=== PATIENT | female | born 1945 | race Caucasian/White ===

== ENCOUNTER 2016-07-08 00:40 | Inpatient (IN) | payer MEDICARE, MEDICAID ==
[~2016-07-08] VITALS: Ht 167.6 cm; Wt 99.7 kg
--- NOTE | ~2016-07-08 | DS ---
PATIENT'S NAME: REJI GILL [facility] AGE: 70 Y [address] ROOM: [address] [place], [place] [address] LOCATION: G3N ADMIT DATE: 07/09/2016 Discharge Summary DISCHARGE DATE: 07/11/2016 FAMILY PHYSICIAN: Suleman Junior MD ATTENDING PHYSICIAN: Karena Morrison FINAL DIAGNOSES: 1. Left lower extremity pain secondary to right knee pain. 2. End-stage renal disease. 3. Fistula dysfunction. 4. Essential hypertension. 5. Chronic liver disease. 6. Paroxysmal atrial fibrillation. Please see the history and physical dictated by Dr. Morrison for details of admission. LABORATORY DATA: On admit, sodium 137, discharge 136. Potassium on admit was 3.7, 5.4 on discharge. BUN on admission was 42, discharge 35. Creatinine on admission 6, discharge 4.8. Liver enzymes were normal. White blood cell count on admission was 7.6, hemoglobin 9.6, hematocrit 29.7, and platelet count 120. X-RAY DATA: MRI of her lumbar spine showed old compression deformity at T12, L1, and L4 with previous vertebroplasties and significant arthritic changes. HOSPITAL COURSE: The patient was admitted to the hospital after presenting to the emergency room with complaints of pain in her right leg and inability to bear weight. She was having to hold on to objects at home to walk and was using a walker here because she could not stand to bear weight. Because of her longstanding renal disease, Nephrology was consulted and she did receive dialysis. Dr. Waller did see her and an MRI was obtained, which really did not give an etiology for pain. Her right knee did swell more after she was admitted. Dr. Carter was asked to evaluate the patient, he did aspirate. He did inject the knee with steroid. After that, she notes that the pain was improved and she could eventually bear weight. Her left arm did swell here. There was a concern about how well her fistula was functioning. She was seen by Dr. Campoverde. A fistulogram was done and she did require a balloon angioplasty for stenosis. On the morning of the , it was felt that she was stable for discharge, she was ambulating. She did have access so that she could continue to receive dialysis. DISCHARGE INSTRUCTIONS: Diet, she is to follow diabetic diet. Follow up with Dr. Campoverde in 1 to 2 weeks, Dr. Carter in 2 weeks, and to continue her outpatient dialysis. MEDICATIONS: PATIENT'S NAME: REJI GILL [facility] AGE: 70 Y [address] ROOM: [id number] [place], [place] [address] LOCATION: [facility] ADMIT DATE: 07/09/2016 Discharge Summary DISCHARGE DATE: 07/11/2016 FAMILY PHYSICIAN: Suleman Junior MD ATTENDING PHYSICIAN: Karena Morrison 1. Allopurinol 100 mg daily. 2. Aspirin 325 mg daily. 3. PhosLo 3335 three times daily with meals and 2001 mg with snacks. 4. Midodrine 10 mg 3 days daily on the morning prior to dialysis. 5. Prilosec 20 mg daily. 6. Tylenol 650 mg every 8 hours as needed. 7. Albuterol inhaled every 6 hours as needed. 8. Mylanta 1 dose as needed for reflux. 9. Compazine 10 mg every 6 hours as needed for nausea. OVERALL PROGNOSIS AT DISCHARGE: Pain was controlled with Tylenol. The patient was stable for discharge. MD KARLA TRIPATHI/alix /[id number] d: 07/11/16 1745 t: 07/24/16 1043, DISCHARGE SUMMARY
--- NOTE | ~2016-07-08 | CON ---
PATIENT'S NAME: REJI GILL [facility] AGE: 70 Y [address] ROOM: [address] [address] LOCATION: [facility] ADMIT DATE: 07/08/2016 Consultation DISCHARGE DATE: FAMILY PHYSICIAN: Buddy Junior ATTENDING PHYSICIAN: LISSETTE DEL CID DATE OF CONSULTATION: 07/09/2016 REFERRING PHYSICIAN: SEAN ALLEN REASON FOR CONSULT: Swollen left upper extremity. HISTORY OF PRESENT ILLNESS: This is a 70-year-old female, admitted to [facility] after presenting to the emergency room with right lower extremity swelling and pain. The Doppler in the ER was negative for DVT. Dr. Carter is currently seeing the patient regarding right lower extremity problems. The patient has a known end-stage renal disease history, requiring hemodialysis, and she received dialysis last on July 08, 2016, as an inpatient. We are consulted regarding left upper extremity swelling since dialysis yesterday. The patient denies any problems with dialysis running, but does report some bleeding recently after dialysis. The patient has a left upper extremity AV fistula brachiocephalic that was placed in 2010 and a fistulogram that was completed in 2013.The patient reports that she has had 3 stents placed to her fistula. The patient also has a history of a failed right radiocephalic AV fistula. The patient also with history of paroxysmal atrial fibrillation, hypertension, coronary artery disease, COPD, dyslipidemia, and chronic anemia. She has no history of DVT. The patient denies any shortness of breath, chest pain, nausea, vomiting, or diarrhea. Denies abdominal pain. Denies any claudication symptoms. She denies being diabetic. The patient has a short smoking history of 1 year, which she stopped at age 22. She is positive for right lower extremity swelling and pain as well as left upper extremity swelling. The patient receives dialysis on Friday, Wednesdays, and Fridays. Nephrology is managing dialysis. PAST MEDICAL HISTORY: 1. End-stage renal disease. 2. Membranoproliferative glomerulonephritis. 3. Coronary artery disease. 4. Hypothyroidism. 5. Hypertension. 6. COPD. 7. Hyperlipidemia. 8. Anemia of chronic kidney disease. 9. Paroxysmal atrial fibrillation. 10. Lymphoma. 11. Liver disease and cirrhosis. PATIENT'S NAME: REJI GILL [facility] AGE: 70 Y [address] ROOM: [place] [address] LOCATION: [facility] ADMIT DATE: 07/08/2016 Consultation DISCHARGE DATE: FAMILY PHYSICIAN: Buddy Junior ATTENDING PHYSICIAN: LISSETTE DEL CID PAST SURGICAL HISTORY: 1. Cholecystectomy. 2. Appendectomy. 3. Liver biopsy. 4. Ectopic . 5. Hysterectomy. 6. Left tibia ORIF. 7. Kidney biopsy. 8. Lymph node biopsy. 9. Right arm radiocephalic fistula. 10. Left arm brachiocephalic fistula. 11. L4 vertebroplasty. 12. Fistulogram to left arm with stents x3. FAMILY HISTORY: Mother with coronary artery disease. Father with lung cancer. Sister and brother both with diabetes mellitus. SOCIAL HISTORY: The patient reports 1 year tobacco use history at age 22. Denies any alcohol or illicit drug use. CURRENT MEDICATIONS: See medication records. ALLERGIES: NIFEDIPINE, FELODIPINE, AND CORTICOSTEROIDS. REVIEW OF SYSTEMS: A 10-point review of systems completed, positives addressed in the history of presenting illness. PHYSICAL EXAMINATION: VITAL SIGNS: Temperature 97.7, heart rate 72, respiratory rate 16, blood pressure 110/54, and oxygen saturations 94%. GENERAL: The patient is in no acute distress, alert and oriented x3, and pleasant. SKIN: Warm, pink, and dry. Venous staining to bilateral lower extremities. No rashes or ulcerations. HEENT: Head: Normocephalic and atraumatic. Ears without drainage. Eyes: Sclerae white. Conjunctivae pink. Extraocular movements intact. PERRLA. Nose without drainage. Throat: Oral mucosa pink and moist. No exudate or erythema. NECK: Without adenopathy. No evidence of JVD. No carotid bruit. Trachea PATIENT'S NAME: REJI GILL [facility] AGE: 70 Y [address] ROOM: [place] [address] LOCATION: [facility] ADMIT DATE: 07/08/2016 Consultation DISCHARGE DATE: FAMILY PHYSICIAN: Buddy Junior ATTENDING PHYSICIAN: LISSETTE DEL CID midline. RESPIRATORY: Diminished lung sounds, but clear to auscultation bilaterally. Even and nonlabored. CARDIOVASCULAR: Regular rate and rhythm. No murmur or extra sounds. S1 and S2. GASTROINTESTINAL: Bowel sounds active x4. Soft and nontender. EXTREMITIES: Bilateral lower extremity edema worse on the right 2+, on the left 1+, left upper extremity edema 2+. Left arm AV graft is pulsatile with bruit. Radial and dorsalis pedis 2+. No cyanosis. Active range of motion throughout. NEUROLOGIC: No focal deficits. Strength equal bilaterally. DIAGNOSTICS/LABS: Chemistry: Sodium 138, potassium 3.6, chloride 98, CO2 of 29, BUN 44, creatinine 6.0, and glucose 91. Hematology: White blood cell count 5.7, hemoglobin 9.2, hematocrit 28.2, and platelets 109. IMPRESSION AND PLAN: End-stage renal disease, on hemodialysis; recent left upper extremity swelling and exam findings are suggestive of outflow blockage or stenosis within her arteriovenous fistula. We will obtain fistula duplex with flow volume today. We will plan for fistulogram in the morning of 07/10/2016. The patient is to be n.p.o. at midnight. Dr. Campoverde has discussed risks and benefits with the patient and she verbalizes, willing to move forward with the procedure. Thank you for the consultation and for allowing us to participate in the care of this patient. KELLEE MIX APRN FOR RALPH CAMPOVERDE MD TO/modl /[id number] d: 07/09/161929 t: 07/12/16 1403, CONSULTATION REPORT
--- NOTE | ~2016-07-08 | ER ---
PATIENT'S NAME: JOPPA [facility] AGE: 70 Y [address] ROOM: [address] [address] LOCATION: [facility] ADMIT DATE: 07/08/2016 ER/Outpatient Report DISCHARGE DATE: FAMILY PHYSICIAN: Buddy Junior ATTENDING PHYSICIAN: LISSETTE DEL CID Time of Arrival: 0040 hours. Time of Evaluation: 0040 hours. CHIEF COMPLAINT: Right leg pain. HISTORY OF PRESENT ILLNESS: The patient is a 70-year-old female who presents to the emergency department today with a chief complaint of right leg pain. She reports it started last week. She saw her primary care doctor, Dr. Parra, on as she underwent an ultrasound, which was negative for DVT. It is a burning-type pain, currently 10/10 in severity. It is worse with movement. The patient denies any history of similar episodes in the past. Denies any trauma or fall. MEDICATIONS: Please see list. ALLERGIES: CORTICOSTEROIDS, GLUCOCORTICOIDS, NIFEDIPINE, FELODIPINE. PAST MEDICAL HISTORY: End-stage renal disease, on hemodialysis; paroxysmal atrial fibrillation; chronic hepatitis; congestive heart failure; coronary artery disease; COPD; hypertension; hypothyroid; dyslipidemia; anemia of chronic disease; and paroxysmal atrial fibrillation. PAST SURGICAL HISTORY: Left arm brachiocephalic AV graft, right arm AV graft, fistulogram, angioplasty, left arm AV graft, liver biopsy, left knee, appendectomy, cholecystectomy, and hysterectomy. SOCIAL HISTORY: The patient denies any tobacco, alcohol, or illicit drug use. PRIMARY CARE DOCTOR: Swetha Parra MD. ROS: All systems are reviewed by myself and are negative with the exception of those discussed in HPI and past medical history. PATIENT'S NAME: JOPPA [facility] AGE: 70 Y [address] ROOM: [address] [address] LOCATION: [facility] ADMIT DATE: 07/08/2016 ER/Outpatient Report DISCHARGE DATE: FAMILY PHYSICIAN: Buddy Junior ATTENDING PHYSICIAN: LISSETTE DEL CID PHYSICAL EXAMINATION: VITAL SIGNS: Weight 100.9 kg, blood pressure 165/70, pulse 87, respiratory rate 18, temperature 96.9, oxygen saturation 97% on room air. GENERAL: The patient is a 70-year-old female, who appears stated age, in acute distress secondary to pain whenever she moves her legs. She is obese. HEENT: Normocephalic, atraumatic. Pupils are equal, round, and reactive to light. NECK: Supple. There is no nuchal rigidity. CARDIOVASCULAR: Regular rate and rhythm. No murmurs, rubs, or gallops. LUNGS: Clear to auscultation bilaterally. No wheezes, rales, or rhonchi. ABDOMEN: Soft, nontender, and nondistended. No rebound, rigidity, or guarding. MUSCULOSKELETAL: The patient does have 1+ pretibial edema in bilateral extremities. She has significant tenderness to palpation with any range of motion of the right leg. She has tenderness to palpation along the right upper thigh, right knee, and then into the right leg. She does have 2/4 pulses, which are equal DP and PT in the lower extremities. SKIN: Warm and dry. There are no rashes or lesions there. LABORATORY DATA AND X-RAYS: Obtained. X-ray of the right hip and pelvis are negative as interpreted by myself. X-ray of the right leg is negative as interpreted by myself. Ultrasound of bilateral lower extremities shows no evidence of DVT or PE. CBC is normal except for a hemoglobin 9.6, hematocrit 29.7, platelets are 120. CMP is normal except for BUN 42, creatinine of 6.0, calcium 7.6. LFTs are normal. D-dimer is normal. IMPRESSION: 1. Intractable right lower extremity pain, unclear etiology. 2. End-stage renal disease, on hemodialysis. 3. Initial visit. EMERGENCY DEPARTMENT COURSE: The patient was brought back to the examination room. Seen and evaluated by myself. IV is established. Laboratory analysis and imaging are obtained as described above. The patient is given multiple doses of fentanyl IV as well as Tylenol p.o., gabapentin p.o., and Dilaudid IV. The patient continues to have pain at this time. I am unclear as to the exact etiology. This patient does have normal workup at this time. The patient does live alone at [facility]. She is unable to ambulate, unable to take care of herself at this time. I do feel she will require further evaluation and treatment management including a possible consideration for PT/OT. I have discussed the case with Dr. Del Cid. He has seen and evaluated the patient here in the emergency department. He does agree to accept the patient for further evaluation PATIENT'S NAME: REJI GILL [facility] AGE: 70 Y [address] ROOM: [address] [place] [address] LOCATION: [facility] ADMIT DATE: 07/08/2016 ER/Outpatient Report DISCHARGE DATE: FAMILY PHYSICIAN: Buddy Junior ATTENDING PHYSICIAN: LISSTETE DEL CID treatment and management. DISPOSITION/FOLLOW-UP: The patient is admitted under the care of Dr. Del Cid in stable condition. DO LORENE RETANA/modl /[id number] d: 07/08/16819 t: 07/09/16 0055, OUTPATIENT REPORT
--- NOTE | ~2016-07-08 | CON ---
PATIENT'S NAME: TIFFANY IGLL [facility] AGE: 70 Y [address] ROOM: [place] [address] LOCATION: [facility] ADMIT DATE: 07/09/2016 Consultation DISCHARGE DATE: FAMILY PHYSICIAN: Buddy Junior ATTENDING PHYSICIAN: LISSETTE DEL CID DATE OF CONSULTATION: 07/08/2016 REFERRING PHYSICIAN: SEAN ALLEN PATIENT IDENTIFICATION: Tiffany Gill is a 70-year-old female. PRESENTING COMPLAINTS: Right leg pain. HISTORY OF PRESENT ILLNESS: The patient was admitted by the Hospitalist Service with increased pain in the right leg. The patient had a prior history of vertebral compression fracture with vertebroplasty. I was consulted to see the patient for the possibility that the leg pain was in fact as a result of spine problem. The patient complained of pain around her right knee as her chief complaint. PAST MEDICAL HISTORY: Significant for end-stage renal disease, she is on dialysis. She also has swollen left upper extremity where she has a fistula. Other medical problems include coronary artery disease, hypothyroidism, COPD, hypertension, cardiac arrhythmia, lymphoma, liver disease with cirrhosis. The patient has had prior appendectomy, cholecystectomy, hysterectomy, kidney biopsy, and the vertebroplasty mentioned earlier. ALLERGIES: NIFEDIPINE, FELODIPINE, AND CORTICOSTEROIDS. CURRENT MEDICATIONS: Please see chart. SOCIAL HISTORY: The patient is a nonsmoker. REVIEW OF SYSTEMS: A 10-point review of systems was carried out. The only abnormal findings are as documented in the history of present illness. PHYSICAL EXAMINATION: GENERAL: The patient is a middle-aged female who was alert and cooperative through the examination. VITAL SIGNS: Stable. Per chart. PATIENT'S NAME: TIFFANY GILL [facility] AGE: 70 Y [address] ROOM: [place] [address] LOCATION: [facility] ADMIT DATE: 07/09/2016 Consultation DISCHARGE DATE: FAMILY PHYSICIAN: Buddy Junior ATTENDING PHYSICIAN: LISSETTE DEL CID NEUROLOGIC: Speech is intact. Cranial nerves, no deficits seen. Motor examination; the patient is able to move her left leg fairly well, the right one is very tender to move. She is particularly tender around the knee area. EXTREMITIES: The patient's right knee is swollen and tender. Left arm is also swollen where she has a fistula. HEENT: Her head is atraumatic. Eyes and ears; no evidence of trauma. SKIN: No skin rashes or skin masses. RESPIRATORY: The patient is not short of breath at bedside. REVIEW OF IMAGING STUDIES: The patient has had lumbar MRI done. There is evidence of degenerative change in some of her disks as well as the previous L4 compression fracture where she had vertebroplasty. There is no significant spinal stenosis. IMPRESSION: A 70-year-old female with right leg pain. Examination shows possibly inflamed right knee. The patient is unable to put weight on the right leg as a result of the knee pain. MEDICAL DECISION MAKING: I have consulted Dr. Carter, orthopedic surgeon, to evaluate the patient's knee. There is no indication for neurosurgical intervention regarding her back at this time. I will follow the patient along while she is in the hospital and see how she does. MD ABIMBOLA ALEMAN/alix /[id number] CC: Suleman Junior MD d: 07/11/16 0007 t: 07/12/16 1651, CONSULTATION REPORT
--- NOTE | ~2016-07-08 | OR ---
PATIENT'S NAME: REJI GILL [facility] AGE: 70 Y [address] ROOM: [address] [address] LOCATION: [facility] ADMIT DATE: 07/10/2016 OR/Procedure Report DISCHARGE DATE: FAMILY PHYSICIAN: Buddy Junior ATTENDING PHYSICIAN: LISSETTE DEL CID SURGEON: Sixto Campoverde MD SPRAY PAINTER: DATE OF PROCEDURE: 07/10/2016 PREOPERATIVE DIAGNOSIS: Nonfunctioning arteriovenous fistula. POSTOPERATIVE DIAGNOSIS: Central vein occlusion. FLIGHT SURVEYOR: El. ANESTHESIA: MAC local. ESTIMATED BLOOD LOSS: 50 mL. OPERATIVE FINDINGS: Central vein stent, which was completely occluded, recanalized at the end of the case. DESCRIPTION OF PROCEDURE: The patient was brought to the wharf labourer, placed supine on the wharf labourer table, prepped and draped in a sterile manner. Preoperative time-out was performed. We gained access using ultrasound guidance, using a micropuncture needle, followed by a micropuncture wire, followed by a micropuncture sheath. We then infiltrated the skin with 1% lidocaine for pain relief. We got access and exchange over a J-wire for 4- Setswana sheath, which we would ultimately exchange for a 5-Setswana sheath later on the case. We performed a series of fistulogram, which showed that the fistula itself was patent, but there was a central venous stent right at the location of the collarbone, which was occluded and likely the cause of her swelling in her arm. We used a 0.035 Glidewire as well as a TrailBlazer catheter to cross an open lesion. We then exchanged using the TrailBlazer for 0.018 wire. We then gave a total of 4000 units of heparin, which was reversed with protamine at the end of the case. We then balloon angioplastied the stent with an 8 x 40 [employer] balloon with the relief of the occlusion and then flow through into the stent down to the heart. We removed the sheath. A single 4-0 nylon was placed for hemostasis. The patient tolerated the procedure well, was transferred to recovery room, and then to the dialysis center. SIXTO CAMPOVERDE MD PATIENT'S NAME: REJI GILL [facility] AGE: 70 Y [address] ROOM: [address] [address] LOCATION: [facility] ADMIT DATE: 07/10/2016 OR/Procedure Report DISCHARGE DATE: FAMILY PHYSICIAN: Buddy Junior ATTENDING PHYSICIAN: LISSETTE DEL CID/alix /[id number] d: 07/10/16 1652 t: 07/12/16 1406, OPERATIVE SUMMARY
--- NOTE | ~2016-07-08 | ENPV ---
Vascular Lower Extremities DVT Study Procedure Demographics Patient Name REJI GILL Date of Study 07/08/2016 Patient Number [id number] Gender Female Date of 1945 Age 70 Visit Number [id number] Height Accession Number [id number] Weight Room Number G3306 BSA BMI Referring Vernon Escobedo MD Interpreting Gilles Henson MD Physician Melissa Pickett MD Physician Physician Ordering Physician Melissa Pickett MD Clinical Education Assistant Water Technician Ines Cobos T, [facility] Conclusions Summary Normal venous duplex examination of the legs bilaterally with normal venous Doppler signals noted throughout. No evidence of thrombophlebitis is noted bilaterally in the deep and superficial veins of the legs. Small calf thrombi cannot be excluded. Procedure Type of Study: Veins:Lower Extremities DVT Study, Venous Duplex Lower Extremity Bilateral. Indications for Study:Pain and Swelling. Appropriate Use Criteria:7 Patient Status:STAT. Study Location:ER. Technical Quality:Adequate visualization. - Preliminary reported to:Dr Torres at 0135. Velocities are measured in cm/s ; Diameters are measured in cm Right Lower Extremities DVT Study Measurements Right 2D and Doppler Measurements + + + + +------+------+ + !Location !Visualized!Compressibility!Thrombosis!Signal!Reflux!Reflux ! ! ! ! ! ! ! !(sec) ! + + + + +------+------+ + !GSV Thigh !Yes !Yes !None !Phasic! ! ! + + + + +------+------+ + !Common !Yes !Yes !None !Phasic! ! ! !Femoral ! ! ! ! ! ! ! + + + + +------+------+ + !Prox !Yes !Yes !None !Phasic! ! ! !Femoral ! ! ! ! ! ! ! + + + + +------+------+ + !Mid Femoral!Yes !Yes !None !Phasic! ! ! + + + + +------+------+ + !Dist !Yes !Yes !None !Phasic! ! ! !Femoral ! ! ! ! ! ! ! + + + + +------+------+ + !Popliteal !Yes !Yes !None !Phasic! ! ! + + + + +------+------+ + !PTV !Yes !Yes !None !Phasic! ! ! + + + + +------+------+ + !Peroneal !Yes !Yes !None !Phasic! ! ! + + + + +------+------+ + Left Lower Extremities DVT Study Measurements Left 2D and Doppler Measurements + + + + +------+------+ + !Location !Visualized!Compressibility!Thrombosis!Signal!Reflux!Reflux ! ! ! ! ! ! ! !(sec) ! + + + + +------+------+ + !GSV Thigh !Yes !Yes !None !Phasic! ! ! + + + + +------+------+ + !Common !Yes !Yes !None !Phasic! ! ! !Femoral ! ! ! ! ! ! ! + + + + +------+------+ + !Prox !Yes !Yes !None !Phasic! ! ! !Femoral ! ! ! ! ! ! ! + + + + +------+------+ + !Mid Femoral!Yes !Yes !None !Phasic! ! ! + + + + +------+------+ + !Dist !Yes !Yes !None !Phasic! ! ! !Femoral ! ! ! ! ! ! ! + + + + +------+------+ + !Popliteal !Yes !Yes !None !Phasic! ! ! + + + + +------+------+ + !PTV !Yes !Yes !None !Phasic! ! ! + + + + +------+------+ + !Peroneal !Yes !Yes !None !Phasic! ! ! + + + + +------+------+ + Signature dtt: RALPH CHURCH: 07/08/16 0120 Physician Self Edit
--- NOTE | ~2016-07-08 | HP ---
PATIENT'S NAME: REJI GILL [facility] AGE: 70 Y [address] ROOM: [place] [address] LOCATION: [facility] ADMIT DATE: 07/08/2016 History & Physical DISCHARGE DATE: FAMILY PHYSICIAN: Buddy Junior ATTENDING PHYSICIAN: LISSETTE DEL CID DATE OF SERVICE: CHIEF COMPLAINT: 1. Right leg pain. 2. Inability to ambulate. HISTORY OF PRESENT ILLNESS: A 70-year-old lady with past medical history of end-stage renal disease, on hemodialysis; paroxysmal atrial fibrillation, on oral anticoagulation; chronic liver disease secondary to unknown etiology; splenomegaly. Was recently admitted to the hospital for acute hypoxic respiratory failure and was discharged. Presented to the emergency department with right leg pain which started yesterday extending from the hip to ankle, burning in character, reached 10/10, no alleviating or aggravating factors. Causing her failure to ambulate. Not associated with any fever or chills. She denied any headache, any trouble swallowing, any chest pain, any shortness of breath, any abdominal pain, but endorsed having extremity swelling. REVIEW OF SYSTEMS: All other systems reviewed and were negative except what is mentioned in the HPI. PAST MEDICAL HISTORY: 1. End-stage renal disease, on hemodialysis. 2. Paroxysmal atrial fibrillation. 3. Chronic liver disease. 4. Splenomegaly. PAST SURGICAL HISTORY: Status post cholecystectomy. FAMILY HISTORY: The patient has history of hypertension in both parents. SOCIAL HISTORY: No smoking, alcohol, or drug abuse. MEDICATIONS: Please see MAR. PHYSICAL EXAMINATION: PATIENT'S NAME: REJI GILL [facility] AGE: 70 Y [address] ROOM: [place] [address] LOCATION: [facility] ADMIT DATE: 07/08/2016 History & Physical DISCHARGE DATE: FAMILY PHYSICIAN: Buddy Junior ATTENDING PHYSICIAN: LISSETTE DEL CID VITAL SIGNS: 150/70, 16, afebrile, 72. GENERAL: In no acute distress. Alert and oriented x3. HEENT: Head; atraumatic, normocephalic. Eyes are nonicteric. No pallor. Oropharynx; moist mucous membranes. CARDIOVASCULAR: S1 and S2. No murmurs, gallops, or rubs. LUNGS: Clear to auscultation bilaterally. ABDOMEN: Soft, nontender, nondistended. Bowel sounds are present. EXTREMITIES: A +2 extremity edema in both upper and lower extremities. MUSCULOSKELETAL: Diffuse tenderness observed in the right leg extending from the right hip joint to the ankle. No visual deformity noted. LAB WORK: X-ray done in the emergency department did not reveal any acute fractures. Dopplers were also performed, which did not reveal any deep venous thrombosis. Lab work in the emergency room today; WBC count is 7.6, hemoglobin 9.6, platelets 120. Glucose 93, BUN 42, creatinine 6.0, sodium 137, potassium 3.7, chloride 98, bicarb 26, calcium 7.6. Hepatic panel is unremarkable. D-dimer is negative. ASSESSMENT: 1. Right leg pain. 2. End-stage renal disease. 3. Hypertension. 4. History of coronary artery disease. 5. Atrial fibrillation. 6. Chronic liver disease. PLAN: We are going to admit this patient to observation. At this point, no clear etiologies apparent. No vascular or orthopedic etiologies present on Dopplers and x-rays respectively. She has intact sensory function as well as motor function and no cause to lead to compartment syndrome. She does not have any pain in her back to suggest sciatica. At this point, we are just going to control her pain and observe her. We are going to consult Nephrology as she is due for her dialysis in the morning. We will resume all her home medications once reconciled. She is full code. MD ELISA BERUMEN/alix PATIENT'S NAME: REJI GILL [facility] AGE: 70 Y [address] ROOM: [address] [place], [place] [address] LOCATION: [facility] ADMIT DATE: 07/08/2016 History & Physical DISCHARGE DATE: FAMILY PHYSICIAN: Buddy Junior ATTENDING PHYSICIAN: LISSETTE DEL CID /[id number] D: [id number] T: [id number] HISTORY & PHYSICAL
--- NOTE | ~2016-07-08 | ENPV ---
Vascular Upper Extremities Veins and Dialysis Procedure Demographics Patient Name REJI GILL Date of Study 07/09/2016 Patient Number [id number] Gender Female Date of 1945 Age 70 Visit Number [id number] Height Accession Number [id number] Weight Room Number G3306 BSA BMI Referring Vernon Escobedo MD Interpreting Gilles Henson MD Physician Tamiko Strickland Physician Physician Ordering Physician Sudhakar SEVERINO Adjunct Business Instructor Locomotive Pipe Fitter Zelalem Razo, RVT Conclusions Summary The internal jugular, subclavian, axillary, brachial, radial and ulnar veins as well as the basilic and cephalic veins have been examined. No evidence of deep venous thrombosis in the left upper extremity. Left subclavian vein stent is patent. Moderately elevated velocities are noted in the mid segment of the left AVF (401cm/s). Narrowing with acute mural thrombus at the distal and mid portions of the AVF. Left Brachiocephalic AVF with stent is overall patent. Left radial and ulnar arteries are antegrade. Procedure Type of Study: Veins:Upper Extremities Veins, Upper Extremity Left. Dialysis:A.V. Fistula Duplex NH. Indications for Study:Swelling of Limb. Appropriate Use Criteria:8 Allergies - Other:(corticosteroids, nifedapine, felodipine). Patient Status:Routine. Study Location:Inpatient Portable. Technical Quality:Adequate visualization. - Preliminary reported to:Karina De La Fuente. Velocities are measured in cm/s ; Diameters are measured in cm Left UE Vein Measurements 2D and Doppler Measurements + + + + + + + !Location !Visualized !Compressibility !Thrombosis !Signal !Reflux ! + + + + + + + !IJV !Yes !Yes !None !Pulsatile ! ! + + + + + + + !SCV !Yes !Yes !None !Pulsatile ! ! + + + + + + + !Innominate !Yes !Yes !None !Pulsatile ! ! + + + + + + + !Axillary !Yes !Yes !None !Pulsatile ! ! + + + + + + + !Brachial !Yes !Yes !None ! ! ! + + + + + + + !Radial !Yes !Yes !None ! ! ! + + + + + + + !Ulnar !Yes !Yes !None ! ! ! + + + + + + + !Basilic !Yes !Yes !None ! ! ! + + + + + + + !Cephalic !Yes !Yes !None ! ! ! + + + + + + + Velocities are measured in cm/s ; Diameters are measured in cm Dialysis Fistula - Access Description - The fistula anastomosis site is - Left Dist Brachial. + +---+---+ +-----+ + !Fistula Location !PSV!EDV!AP Diam !Depth!Volume Flow ! + +---+---+ +-----+ + !Brachial !114! ! ! ! ! + +---+---+ +-----+ + !Dist Radial !60 ! ! ! ! ! + +---+---+ +-----+ + !Inflow Artery !114! ! ! ! ! + +---+---+ +-----+ + !Arterial Anastomosis !266!54 !0.81 !0.8 !1934 ! + +---+---+ +-----+ + !Prox Vein !101!27 !0.77 !1.95 !1174 ! + +---+---+ +-----+ + !Mid Vein !401!82 !0.48 !0.72 !1513 ! + +---+---+ +-----+ + !Distal Vein !79 !15 !0.76 !0.58 !455 ! + +---+---+ +-----+ + Signature dtt: RALPH CHURCH: 07/09/16 1247 Physician Self Edit
--- NOTE | ~2016-07-08 | CON ---
PATIENT'S NAME: REJI GILL [facility] AGE: 70 Y [address] ROOM: [place] [address] LOCATION: [facility]3N ADMIT DATE: 07/08/2016 Consultation DISCHARGE DATE: FAMILY PHYSICIAN: Buddy Junior ATTENDING PHYSICIAN: LISSETTE DEL CID DATE OF CONSULTATION: 07/08/2016 REFERRING PHYSICIAN: SEAN ALLEN This is a [facility] consultation. REASON FOR CONSULTATION: End-stage renal disease, requiring hemodialysis therapy. HISTORY OF PRESENT ILLNESS: This is a 70-year-old female patient, who is well known to Dr. Junior and myself, who presented to the emergency department complaining of right leg pain. The patient is status post hospitalization x1 week for influenza A. The patient does report that she has been having some on and off leg pain in her right leg and presented to her primary care physician's office on . At that time, the patient was evaluated for DVT, and ultrasound was negative. The patient does report the pain in her leg is burning-type pain and does worsen with movement. She reports pain is from the mid thigh to the ankle. The patient does have a longstanding history of end-stage renal disease, requiring hemodialysis. 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 She does undergo hemodialysis at [facility] on Friday, Friday, and Friday. Therefore, due to her history of end-stage renal disease, the patient is due for her hemodialysis today. Therefore, Dr. Junior in Nephrology has been asked to consult on the patient and manage her dialysis while she is here. PAST MEDICAL HISTORY: As listed above includin. End-stage renal disease. 2. History of membranoproliferative glomerulonephritis. 3. Coronary artery disease. 4. Hypothyroidism. 5. Hypertension. 6. COPD. 7. Hyperlipidemia. 8. Anemia of chronic kidney disease. 9. Paroxysmal atrial fibrillation. 10. Lymphoma. PATIENT'S NAME: REJI GILL [facility] AGE: 70 Y [address] ROOM: [place] [address] LOCATION: [facility] ADMIT DATE: 07/08/2016 Consultation DISCHARGE DATE: FAMILY PHYSICIAN: Buddy Junior ATTENDING PHYSICIAN: LISSETTE DEL CID PAST SURGICAL HISTORY: 1. Left upper arm primary brachiocephalic AV graft placed in April [address] Laurent. 2. Right forearm primary radiocephalic AV fistula placed by Dr. Laurent. 3. A Fistulogram and angioplasty with stent placement of the left upper arm AV graft in 2013. 4. Cholecystectomy. 5. Hysterectomy. 6. History of L4 vertebroplasty. ALLERGIES: FELODIPINE, NICARDIPINE, AND PREDNISONE. CURRENT MEDICATIONS: 1. Allopurinol 300 mg daily. 2. Aspirin 81 mg daily. 3. PhosLo 667 mg 2 tablets 3 times a day with food. 4. Levothyroxine 100 mcg daily. 5. Lorazepam 0.5 mg daily. 6. Omeprazole 20 mg daily. 7. Mylanta 30 mL as needed. 8. Tamiflu, recently completed. SOCIAL HISTORY: The patient does live at home by herself. She does live here in [place]. She denies any history of tobacco or alcohol use. Denies illicit drug use. FAMILY HISTORY: Significant for coronary artery disease with a myocardial infarction in her mother. Denies any history of kidney disease or dialysis. REVIEW OF SYSTEMS: GENERAL: Recent history of influenza A. Denies any current fever. EYES: No double vision, blurred vision. NOSE: No epistaxis or rhinorrhea. MOUTH: No gingival bleeding. THROAT: No sore throat or hoarseness. She still has a dry hacky cough. RESPIRATORY: Denies wheezing or hemoptysis. CARDIOVASCULAR: Denies any chest pain or orthopnea. Denies palpitations. GASTROINTESTINAL: Denies nausea, vomiting, or diarrhea. MUSCULOSKELETAL: Complains of right-sided leg pain from the mid thigh to the ankle. IMMUNOLOGICAL: Positive influenza A within the last week. HEMATOLOGICAL: Denies bruising or easy bleeding. PSYCHOLOGICAL: Denies depression or anxiety. PATIENT'S NAME: REJI GILL [facility] AGE: 70 Y [address] ROOM: [address] [place], [place] [address] LOCATION: [facility] ADMIT DATE: 07/08/2016 Consultation DISCHARGE DATE: FAMILY PHYSICIAN: Buddy Junior ATTENDING PHYSICIAN: LISSETTE DEL CID LABORATORY DATA: WBCs 5.7, hemoglobin 9.2, hematocrit 28.2, platelets 109. Glucose 91, BUN is 44, creatinine 6.0, sodium is 138, potassium 3.6, chloride is 98, CO2 is 29, calcium is 7.5, albumin is 3.3. AST 16, ALT 30, alkaline phosphatase 104. INR is 1.0. D-dimer is 0.58. IMAGING DATA: 1. Right lower leg films show no acute bone fracture identified at the right lower leg. 2. Degenerative changes at the knee. 3. Bone osteopenia. 4. Right hip two views, pelvis one view, show:. a. No acute bone fracture identified at the pelvis or the hips. b. Past L4 vertebroplasty. PHYSICAL EXAMINATION: VITAL SIGNS: Blood pressure is 109/58, pulse is 65, respirations 16, temp is 97.8, and weight is 99.7 kg. GENERAL: On exam, this is a very pleasant, alert and oriented, white elderly female, who appears her approximate stated age, is in no acute distress. HEENT. Her head is normocephalic and atraumatic. Eyes: Pupils are equal, round, and reactive to light and accommodation. EOMs are intact. Nose: Midline. Mouth: No gingival bleeding. Throat is without lymphadenopathy, carotid bruits, or JVD. NECK: Soft and supple. CARDIOVASCULAR: Regular rate and rhythm with no appreciable murmurs, rubs, or thrills. ABDOMEN: Lungs are clear to auscultation anterior and posterior. ABDOMEN: Soft, nontender, and nondistended. Bowel sounds are positive. EXTREMITIES: Show 1+ lower extremity edema bilaterally, which is stable. She does have some venous stasis changes bilaterally to the anterior portion of her lower legs. She does have positive pain of the right lower extremity with range of motion. SKIN: Warm and dry. There are no rashes or lesions noted. NEUROLOGICAL: Cranial nerves 2 through 12 are grossly intact. ASSESSMENT AND PLAN: 1. End-stage renal disease, requiring hemodialysis therapy. We will obtain the patient's outpatient clinical record and provide hemodialysis accordingly. 2. Right lower extremity pain. The patient does have a history of L4 vertebroplasty. There is some concern that she may have unstable lumbar spine. Dr. Junior has asked Dr. Waller to re-evaluate the patient as he performed her surgery in the past. We will await further PATIENT'S NAME: GILLREJI CORREA [facility] AGE: 70 Y [address] ROOM: [address] [place], [place] [address] LOCATION: [facility] ADMIT DATE: 07/08/2016 Consultation DISCHARGE DATE: FAMILY PHYSICIAN: Buddy Junior ATTENDING PHYSICIAN: LISSETTE DEL CID. 3. Hyperphosphatemia secondary to chronic kidney disease. The patient is to continue her PhosLo as an outpatient. 4. Anemia of chronic kidney disease.Follow as outpatient on anemia protocol at [facility]. Will obtain outpatient records. 5. Renovascular Hypertension.Stable. This patient has been seen and assessed by Dr. Junior. Her care is being conducted in consultation with Dr. Junior as well as me. We will plan further recommendations as they are forthcoming. KAVON FERRARA DNP, GRAIN ELEVATOR AGENT FOR M MD HUE SHANNON/modl /[id number] d: 07/08/162018 t: 07/16/16 0832, CONSULTATION REPORT
[~2016-07-08 00:40] MED LIST: AMOXICILLIN500 M1 PO; APRESOLINE25 MG PO; ASPIRIN325 MG PO; COMPAZINE10 MG PO; CYCLOBENZAPRINE5 MG PO; DUONEB INH; LEVOTHROID (S100 MCG PO; LIDOCAINE-PRILO30 GM TOP; MIDODRINE HCL10 MG PO; MYLANTA (MAG-AL30 ML PO; PHOSLO667 MG PO; PRILOSEC20 MG PO; TAMIFLU30 MG PO; TYLENOL325 MG PO; ZYLOPRIM300 MG PO; [UNRECOGNIZED DRUG - OTHER] INH
[2016-07-08 01:13] LABS: BASOPHIL % 0.4 %; EOSINOPHIL # 0.2 K/uL (0.0-0.5); EOSINOPHIL % 2.1 %; HEMATOCRIT 29.7 % (33.0-46.0); HEMOGLOBIN 9.6 g/dL (10.0-15.0); IMMATURE GRANULOCYTE % 0.4 %; LYMPHOCYTE # 2.3 K/uL (0.8-4.0); LYMPHOCYTE % 29.5 %; MCH 32.3 pg (27.0-34.0); MCHC 32.3 gm/dL (32.0-36.5); MONOCYTE # 0.5 K/uL (0.0-1.0); MONOCYTE % 5.9 %; MPV 9.2 fl (9.4-12.4); NEUTROPHIL # (ANC) 4.7 K/uL (1.8-7.8); NEUTROPHIL % 61.7 %; NRBC % 0 /100WBC (0-0.00); PLATELET COUNT 120 K/uL (150-450); RBC 2.97 M/uL (3.50-5.50); RDW-CV 13.9 % (11.9-14.6); WBC 7.6 K/uL (4.0-11.0)
[2016-07-08 01:29] LABS: ALBUMIN 3.6 gm/dL (3.5-5.0); ANION GAP 16.7 (10.0-19.0); CALCIUM 7.6 mg/dL (8.5-10.5); POTASSIUM 3.7 mMol/L (3.7-5.1); TOTAL BILIRUBIN 0.3 mg/dL (0.0-1.5); TOTAL PROTEIN 6.3 g/dL (6.0-8.4)
--- NOTE | 2016-07-08 05:36 | NUR ---
Patient hospitalized on the for difficulty breathing due to influenza. She had started having right leg pain at that time. Has increased in pain daily until she is now having difficulty ambulating due to the pain. States the pain is a shooting buring pain that starts in the lower right leg and shoots up to the upper thigh. States she has numbness to right foot that come and goes. No numbness at this time. She states she does have SOB with activity still. She has dialysis fistula to left upper arm. Is on dialysis Friday, Friday, Friday. is her renal doctor. She is incontinent of urine at times. Wears a brief. States her eyesight has worsen to the point she can no longer read with her current glasses. States she uses a magnifying glass to read at home. Patient lives by herself in [facility].
[2016-07-08 06:01] LABS: BASOPHIL % 0.3 %; EOSINOPHIL # 0.2 K/uL (0.0-0.5); HEMATOCRIT 28.2 % (33.0-46.0); HEMOGLOBIN 9.2 g/dL (10.0-15.0); IMMATURE GRANULOCYTE % 0.3 %; LYMPHOCYTE # 1.9 K/uL (0.8-4.0); LYMPHOCYTE % 32.5 %; MCH 32.6 pg (27.0-34.0); MCHC 32.6 gm/dL (32.0-36.5); MONOCYTE # 0.4 K/uL (0.0-1.0); MONOCYTE % 6.3 %; MPV 8.8 fl (9.4-12.4); NEUTROPHIL # (ANC) 3.3 K/uL (1.8-7.8); NEUTROPHIL % 57.6 %; NRBC % 0 /100WBC (0-0.00); PLATELET COUNT 109 K/uL (150-450); RBC 2.82 M/uL (3.50-5.50); WBC 5.7 K/uL (4.0-11.0)
[2016-07-08 06:13] LABS: PROTIME 9.9 SECONDS (9.6-11.1)
[2016-07-08 06:19] LABS: ALBUMIN 3.3 gm/dL (3.5-5.0); ANION GAP 14.6 (10.0-19.0); CALCIUM 7.5 mg/dL (8.5-10.5); POTASSIUM 3.6 mMol/L (3.7-5.1); TOTAL PROTEIN 5.8 g/dL (6.0-8.4)
[2016-07-08 06:20] LABS: TOTAL BILIRUBIN 0.4 mg/dL (0.0-1.5)
--- NOTE | 2016-07-08 16:29 | NUR ---
PATIENT HAD DIALYSIS THIS AM. TLENOL AT 1220 IN DIALYSIS FOR RIGHT LEG PAIN. SOB WITH ACTIVITY. STOOD AT BEDSIDE WITH WHEELCHAIR AND PIVOT TO [facility]. LEFT UPPER ARM FISTULA. VSS. HAD SOME LOW BPS IN DIALYSIS, BUT NONE ON UNIT. LEFT LOWER LEGS SWOLLEN AND DUSKY/RED COLOR. NONPITTING EDEMA TO LEGS AND LEFT ARM. BRUISES/SCABS ARMS. SHOOTING AND BURNING PAIN TO RIGHT LOWER LEG. WILL HAVE MRI TODAY, DR. DIAZ TO CONSULT,
--- NOTE | 2016-07-09 04:24 | NUR ---
07/08 RLE SEVERE PAIN, UP S/P W/FWW/GAIT BELT TO [facility] [place], MOSTLY ANURIC IS ESRD W/HD ON M/W/F THRU LEENA AV FISTULA W/GOOD BRUIT/THRILL, RIGHT HAND PIV SALINE LOCKED. GOOD PO INTAKE AND LBM 07/08 DURING DAY SHIFT. HAD AN MRI YESTERDAY AND WAS SEEN BY DR DIAZ AND NOTED INFLAMMATION TO KNEE. CSMS WNL BUT VERY WEAK DORSAL PULSE, NOTE X'S ON THE FOOT TO FIND. GOOD APPETITE AND VERY PLEASANT. TYLENOL FOR PAIN LD@2044 WITH GOOD RESULTS, RATED PAIN THIS AM @0300 A 07/05 AND REFUSED PAIN MEDICATIONS. PATIENT ALSO HS INFLUENZA AND HAS BEEN TAKING TAMIFLU SINCE 06/30/2015. PLANS TO RETURN HOME ON DISCHARGE.
--- NOTE | 2016-07-09 10:15 | NUR ---
1015 Introduced self/role to patient. Introduced ANGY Kenny Student also. She lives at [facility], has 2 daughters in [facility] and one in [place]. She also talks to her sister daily from [place]. Has a good network of supports. She has a walker, electric scooter she uses inside if needed. She can't drive but uses the [employer] bus. She could not think of any DME she would need. Will return home. No needs.
--- NOTE | 2016-07-09 12:03 | NUR ---
[id number] [facility] Student Monitored assessment, medications, documentation
--- NOTE | 2016-07-09 16:20 | NUR ---
Significant Event: Pt is a/o. Has been up to commode to void and sat in chair. 1 assist, walker and gaitbelt. c/o R) knee pain. Dr Carter will be coming after clinic to inject R) knee. L) hand/arm swollen. Her fistula is in that arm. US done to check for DVT and if fistula is open. Will be NPO after midnoc for fistulagram in am. Will also have dialysis tomorrow. Has been on tamiflu. No dose tonight, last dose after dialysis tomorrow. SL R) wrist. Taking tylenol for pain control. Follow up:
--- NOTE | 2016-07-10 04:30 | NUR ---
Significant Event: 1 assist with transfers. Fistula to L) arm with good bruit and thrill. L) arm/hand edema. Tylenol at 0015. NPO since midnight. On room air. Intermittent cough. Will have dialysis after procedure. Follow up:
[2016-07-10 07:51] LABS: ALBUMIN 3.9 gm/dL (3.5-5.0); ANION GAP 13.4 (10.0-19.0); POTASSIUM 5.4 mMol/L (3.7-5.1)
[2016-07-10 07:52] LABS: CREATININE 4.8 mg/dL (0.5-1.1); PHOSPHORUS 1.7 mg/dL (2.5-4.9)
--- NOTE | 2016-07-10 10:39 | NUR ---
PT RETURNED TO FLOOR FROM FORKLIFT DRIVER AT 1000. ALERT AND ORIENTED. POST OP VITALS CONT. PT DENIES PAIN. LT ARM SWELLING DECREASED SOME BY MEASUREMENTS. WILL AWAIT DIALYSIS TO CALL FOR PT.
--- NOTE | 2016-07-10 14:04 | NUR ---
PT TAKEN DOWN TO DIALYSIS AT 1200.
--- NOTE | 2016-07-10 15:15 | NUR ---
Hannah with UR called and let me know patient was changed to inpatient after being sent thru [facility]. Might need placement due to NWB on her leg. Not able to see chart all day due to chart with patient at dialysis and procedure.
--- NOTE | 2016-07-10 17:34 | NUR ---
PT RETURNED TO FLOOR [facility] DIALYSIS
--- NOTE | 2016-07-10 17:35 | NUR ---
Significant Event: PT ALERT AND ORIENTED. BACK FROM DIALYSIS AT 1730. 2.7 LITERS REMOVED. PT DOWN THIS AM FOR FISULAGRAM AND OPENED A BLOCKED AREA BY THE LT CAVICLE. SWELLING IN LT ARM IS DECREASING SINCE PROCEDURE. PT DENIES DISCOMFORT. WILL BE DISCHARGED TOMORROW. TRNASFERS WITH 1 ASSIST Follow up:
--- NOTE | 2016-07-11 02:48 | NUR ---
Significant Event: Pt alert and oriented. In bed all shift. Swelling in arm has dropped to 12.75 in forearm and and 15.5 in the upper arm. Pt is able to move fingers and squeeze her hand shut. Fistula has a small dsg that is c/d/i. Bruit and thrill present. d/c back to [facility] today. Follow up:
--- NOTE | 2016-07-11 09:50 | NUR ---
7944 Spoke to Den, the Charge Nurse, patient is set to go home today and doesn't need any additional services that she is aware of. Patient did walk the halls today.
--- NOTE | 2016-07-11 10:15 | NUR ---
[id number] Supervised [facility] Hand Almond Blancher.
--- NOTE | 2016-07-11 11:52 | NUR ---
Patient was discharged home in stable condition. IV was removed and instructed to apply pressure to stop bleeding, cobain wrapped around. Instructions given to follow up with the physicians on July 24. No new medications prescribed. Patient was transferred to the wheelchair and [facility] by the student nurse.
[2016-10-08] MEDS ORDERED: ASPIRIN325 MG PO (10:43)
[2016-10-10] MEDS ORDERED: NORCO 5-325 TA1 EACH PO (11:37)
[2017-01-02] MEDS ORDERED: NORCO 5-325 TA1 EACH PO (09:15)
== END 2016-07-11 11:25 | disposition disaster alternative care site (69) | DRG 252 ==
LOC: GMED 00:40 → G3N 03:36
PROVIDERS: Emergency Medicine; ADMIT Internal Medicine
PROC: 5A1D60Z (ICD-10-PCS; principal; 2016-07-10)
PROC: 05763DZ Dilation of Left Subclavian Vein with Intraluminal Device, Percutaneous Approach (ICD-10-PCS; 2016-07-10)
PROC: B51VYZZ Fluoroscopy of Other Veins using Other Contrast (ICD-10-PCS; 2016-07-10)
DX: T82.868A Thrombosis due to vascular prosthetic devices, implants and grafts, initial encounter (principal); N18.6 End stage renal disease; I12.0 Hypertensive chronic kidney disease with stage 5 chronic kidney disease or end stage renal disease; I50.9 Heart failure, unspecified; I48.0 Paroxysmal atrial fibrillation; K76.89 Other specified diseases of liver; Z79.01 Long term (current) use of anticoagulants; M25.561 Pain in right knee; M79.605 Pain in left leg; Z99.2 Dependence on renal dialysis; D63.8 Anemia in other chronic diseases classified elsewhere; E03.9 Hypothyroidism, unspecified; E78.5 Hyperlipidemia, unspecified; E83.39 Other disorders of phosphorus metabolism; Z87.891 Personal history of nicotine dependence; J44.9 Chronic obstructive pulmonary disease, unspecified; E66.9 Obesity, unspecified; Z68.35 Body mass index [BMI] 35.0-35.9, adult
CPT/HCPCS: C1725; C1769; C1894; G0378; G8978; G8979; G8980; G8987; G8988; G8989; J0690; J1040; J1170; J1644; J2250; J2720; J3010; P9047; Q4081

== ENCOUNTER 2016-08-05 10:18 | Observation (INO) | payer MEDICARE, MEDICAID ==
[~2016-08-05] VITALS: Ht 167.6 cm; Wt 94.4 kg
--- NOTE | ~2016-08-05 | DS ---
PATIENT'S NAME: REJI GILL [facility] AGE: 70 Y [address] ROOM: [place] [address] LOCATION: GPCU ADMIT DATE: 08/05/2016 Discharge Summary DISCHARGE DATE: 08/08/2016 FAMILY PHYSICIAN: Swetha Parra MD ATTENDING PHYSICIAN: Noah Ernst V FINAL DIAGNOSES: 1. Chest pain, atypical chest wall pain, resolved. 2. End-stage renal disease, on hemodialysis. 3. Hypertension. 4. Dyslipidemia. 5. Right tibial fracture, chronic. 6. Arteriovenous fistula evaluation. 7. Paroxysmal atrial fibrillation, asymptomatic. 8. Right pulmonary nodule. 9. Chronic splenomegaly. 10. History of lymphoma. 11. Long-term anticoagulation. CONSULTATIONS: 1. Cardiology, Dr. Jennings. 2. Orthopedics, Dr. Carter. 3. Vascular Surgery, Dr. Campoverde. PROCEDURES: Left heart catheterization with Dr. Jennings. REASON FOR ADMISSION: This is a 70-year-old female who presented with chest pain. The patient was evaluated and then further admitted to rule out acute coronary syndrome. Please see Dr. Ernst' admission H and P for further details. DIAGNOSTIC STUDIES: A transthoracic echocardiogram was done and showed normal left ventricular contractility with an ejection fraction of 60% and no wall motion abnormalities. The patient underwent cardiac stress test and a Lexiscan stress test. It showed normal EF and normal wall motion with increased t.i.d. The patient then subsequently underwent left heart catheterization that showed mild coronary artery disease and required no intervention. Serial cardiac enzymes were done. Troponin less than 0.04 x2. CPK was normal during this admission. Serial CBCs were done. White count was normal, hemoglobin 11.5 on admission and 11.2 at the time of discharge. The patient has thrombocytopenia. Platelet count 143 on admission, 126 subsequently. Serial BMPs were done, showed essentially normal electrolytes. Creatinine 5.6 on admission. The patient underwent hemodialysis and creatinine subsequently PATIENT'S NAME: REJI GILL [facility] AGE: 70 Y [address] ROOM: [place] [address] LOCATION: GPCU ADMIT DATE: 08/05/2016 Discharge Summary DISCHARGE DATE: 08/08/2016 FAMILY PHYSICIAN: Swetha Parra MD ATTENDING PHYSICIAN: Noah Ernst V was 4.6, liver function tests were normal. Mag 2.0. ESR 18, PT 9.8, INR 0.9, PTT 26. Chest x-ray done on admission showed no evidence of cardiopulmonary disease. CT chest, PE protocol was done and showed no PE and no aortic lesion or other acute findings, slightly increased size of subcentimeter right pulmonary nodule noted. This is most likely benign. Recommend followup chest CT in 6 months. Chronic splenomegaly noted. EKG showed sinus rhythm with no acute ST changes. HOSPITAL COURSE: The patient was admitted for evaluation and management of chest pain. She was placed on the ACS protocol. Cardiology, Dr. Jennings, was consulted. The patient underwent a transthoracic echocardiogram. Findings are as above. She then subsequently underwent a Lexiscan stress test that showed an increased t.i.d. The patient then underwent a left heart catheterization that showed mild coronary artery disease and required no intervention. Please see Dr. Jennings's op note for further details. The patient's chest pain was subsequently thought to be secondary to chest wall pain. It had resolved by the time of discharge. The patient has end-stage renal disease and underwent hemodialysis per Renal recommendations. The patient has been evaluated by Dr. Campoverde for AV fistula placement. Plan is for AV fistula placement once her acute issues are resolved in about 4 weeks' time. The patient also has a pulmonary nodule that needs surveillance down the line. On the day of discharge, the patient had nausea. She was given Zofran and Protonix. She then continued to do well and was able to tolerate p.o. The patient also has a right tibial injury and apparently has a chronic right tibial fracture. Orthopedics, Dr. Carter, was consulted and recommended that the patient ambulate with the help of a walker. He recommended outpatient followup to consider a steroid injection, scope, or TKA. The patient will follow up outpatient with Dr. Carter. Her pain was very well controlled during this admission and she was ambulating with the help of a walker. On the morning of discharge, Dr. Jennings followed up with the patient and thought that the patient had paroxysmal atrial fibrillation and recommended Coumadin for the patient. The patient was then discharged on Coumadin with followup PT/INR with primary care physician. DISCHARGE INSTRUCTIONS: The patient was discharged on a cardiac diet with activity as tolerated. She has to use a walker for assistance. Follow up with Dr. Carter in 2 weeks' time. Follow up with Dr. Swetha aPrra, [facility], in 3-4 days. PCP to check a CBC and a BMP. PCP also to check PATIENT'S NAME: REJI GILL [facility] AGE: 70 Y [address] ROOM: [place] [address] LOCATION: GPCU ADMIT DATE: 08/05/2016 Discharge Summary DISCHARGE DATE: 08/08/2016 FAMILY PHYSICIAN: Swetha Parra MD ATTENDING PHYSICIAN: Noah Ernst V PT/INR and manage Coumadin. Follow up with Dr. Jennings in 6 months. Follow up with Dr. Campoverde in 4 weeks for evaluation for AV fistula placement. PCP to check a CBC and a BMP. The patient also needs a repeat chest CT in 6 months for surveillance for right pulmonary nodule. PCP to arrange and monitor. I called Dr. Parra and requested that the patient be bridged with Lovenox injections till her INR is therapeutic. Patient was notified about the plan by Ramona Florian, Hospitalist [employer]. She will follow up with Dr. Parra for initiation of lovenox, lovenox teaching and INR follow up. DISCHARGE MEDICATIONS: 1. Allopurinol 150 mg p.o. daily. 2. Aspirin 325 mg p.o. daily. 3. PhosLo 667 mg, dosed as 3335 mg p.o. 3 times daily with meals. 4. Lipitor 40 mg p.o. daily. 5. Midodrine 10 mg p.o. 3 times daily prior to dialysis on Friday, Friday, and Friday. 6. Prilosec 20 mg p.o. daily, 2 tabs daily. 7. Tylenol 650 mg p.o. q.8 hours p.r.n. pain. 8. Compazine 10 mg p.o. q.6 hours p.r.n. nausea. 9. Ipratropium/albuterol sulfate inhalation 1 vial inhalation every 6 hours p.r.n. shortness of breath. 10. Mylanta 1 dose as needed p.r.n. acid reflux. 11. Lidocaine and prilocaine cream 1 application topically 3 days per week locally. 12. Nitrostat 0.4 mg sublingual p.r.n. chest pain. 13. MiraLAX 17 g p.o. b.i.d. 14. Velphoro 1000 mg p.o. t.i.d. with food. 15. Coumadin 5 mg p.o. daily, PCP to manage based on PT/INR levels. 16. Lovenox per Dr. Parra till INR is therapeutic. This patient was managed by hospitalist, Cardiology, and Nephrology teams during this admission. EVANGELINA PULLIAM MD MT/modl /[id number] CC: MD Swetha Rowe MD d: 08/09/16 0512 t: 08/26/16 0258, DISCHARGE SUMMARY
--- NOTE | ~2016-08-05 | CON ---
PATIENT'S NAME: REJI GILL [facility] AGE: 70 Y [address] ROOM: [id number] [place] [id number] LOCATION: GPCU ADMIT DATE: 08/05/2016 Consultation DISCHARGE DATE: FAMILY PHYSICIAN: Swetha Parra MD ATTENDING PHYSICIAN: SCOTT REID V DATE OF CONSULTATION: 08/05/2016 REFERRING PHYSICIAN: Elma Jennings MD Patient of Dr. Reid. HISTORY OF PRESENT ILLNESS: Mrs. Gill is a 70-year-old female patient, who presented to the emergency room with fairly sudden onset of left precordial chest pain, which was relatively severe with ratings of 7-9 on a scale of 1-10. This was associated with significant chest wall tenderness. Nitroglycerin did not help the pain, but Dilaudid did to some extent, and the pain came down to about 5. EKGs and enzymes were negative, and she was hospitalized for further observation. I am asked to see in consultation. The patient has been on dialysis for 5 years. She has symptoms of spasms that last about 5 minutes intermittently for the past 1 year or so. She has also intermittent atrial fibrillation according to her, and at one time, she was on Coumadin, but she has been taken off that, and the reason for that is unclear. She has been mildly short of breath for the past 2 years and has been on nebulizers. Currently, she is in functional class III with some paroxysmal nocturnal dyspnea. There is no orthopnea. She has some palpitations and dizziness at times, especially if she lies down. She also does have some ankle swelling. She has a fistula in her right upper arm as well as a fistula in her right forearm. She has a graft in her left upper arm. The patient has a chronic history of dialysis. In addition, she has elevated cholesterol. She quit smoking a number of years back, and she has hypertension. She denies diabetes or family history of premature coronary artery disease. 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 The patient denies MT or angina or nitroglycerin use. There is no history of rheumatic fever or heart murmur. She has a history of congestive heart failure and atrial fibrillation. PATIENT'S NAME: REJI GILL [facility] AGE: 70 Y [address] ROOM: [address] [address] LOCATION: GPCU ADMIT DATE: 08/05/2016 Consultation DISCHARGE DATE: FAMILY PHYSICIAN: Swetha Parra MD ATTENDING PHYSICIAN: SCOTT REID V MEDICATIONS: Her current list of medications are: 1. Midodrine 10 mg 3 days a week. 2. Aspirin 325 mg a day. 3. Allopurinol 150 mg a day. 4. Calcium acetate almost 5 g 3 times a day. 5. Combivent. 6. Protonix 40 mg a day. 7. Epoetin Augustus 2000 units. 8. Paricalcitol. 9. Cefazolin. ALLERGIES: CORTICOSTEROIDS, NIFEDIPINE, AND FELODIPINE. PAST MEDICAL HISTORY: 1. End-stage renal disease. 2. History of coronary artery disease mentioned in the chart. 3. Hypothyroidism. 4. COPD. 5. Anemia of chronic disease. 6. History of lymphoma. PAST SURGICAL HISTORY: 1. Cholecystectomy. 2. Hysterectomy. 3. L4 vertebroplasty. SOCIAL HISTORY: The patient lives by herself in [place]. She denies abusing alcohol or tobacco. Her appetite and weight have been stable. No illicit drug use. FAMILY HISTORY: Significant for MT in her mom. REVIEW OF SYSTEMS: A 12-point review of systems reveals: 1. Some nausea and vomiting intermittently. 2. Right-sided leg pain. 3. History of easy bruising. PHYSICAL EXAMINATION: VITAL SIGNS: Her blood pressure is 113/80, heart rate is in the 70s and regular, respirations 18, afebrile. HEENT: Normal. PATIENT'S NAME: REJI GILL [facility] AGE: 70 Y [address] ROOM: [place] [address] LOCATION: GPCU ADMIT DATE: 08/05/2016 Consultation DISCHARGE DATE: FAMILY PHYSICIAN: Swetha Parra MD ATTENDING PHYSICIAN: SCOTT REID V NECK: Supple with no JVD, thyromegaly, lymphadenopathy, or carotid bruit. CARDIAC: PMI is not well located. First and second heart sounds are regular. There are no added sounds or murmurs. CHEST: Clear to auscultation. ABDOMEN: Soft and nontender. Bowel sounds are normally present. EXTREMITIES: Reveal trace edema. She does have significant tenderness in the left parasternal area. ASSESSMENT: A 70-year-old female patient with: 1. Hypertension. 2. History of membranoproliferative glomerulonephritis with dialysis. 3. Dyslipidemia. 4. She is ruled out for myocardial infarction. RECOMMENDATIONS: We will do a stress test in the morning and further management will depend on the initial evaluation of her stress test. Again, I appreciate this opportunity to participate in the care of Mrs. Gill. MD JESSICA MAYA/alix /[id number] d: 08/06/162235 t: 08/20/16 1233, CONSULTATION REPORT
--- NOTE | ~2016-08-05 | ESTC ---
Cardiac Perfusion Imaging Demographics Patient Name BRIDGET Painting Gender Female Patient Number [id number] Race Visit Number [id number] [place] [id number] Room Number G6336 Accession Number [id number] Height 66 inches Date of 1945 Weight 217.6 pounds Interpreting Dick Wills Date of study 08/06/2016 Physician Supervising /OLI Wills NM Technologist Marbin Rosas MD Ordering Physician Dick Wills Stress Vlad Steele MD racking technician RDCS, RVT Stress ECG Reading Dick Wills Nurse Gabriela Adhikari RN Physician Procedure Admit Source:Emergency department. Procedure Type: Nuclear Stress Test:Pharmacological, Lexiscan, Cardiolite Stress Test Procedure Start time: 08/06/2016 07:30 Indications: Chest pain. Risk Factors The patient risk factors include:physical activity, former tobacco use, last creatinine: 4.6 mg/dl, dyslipidemia, renal failure currently treated with dialysis and creatinine clearance: 17.73 ml/min. Conclusions Summary TID. Normal perfusion images. Normal EF and WM. Stress Protocols Resting ECG rsr. Pre-stress physical exam: Un changed. Predicted HR: 150 bpm ECG Findings No ECG changes suggestive of ischemia. Arrhythmias No rhythm abnormality. Symptoms SOB. Nausea and vomiting. Stress Interpretation Lexiscan with hypertensive response. No chest pain. No ischemia. No arrythmias. Imaging Results High risk findings Summed scores - LV dilatation (TID) - Summed stress score: 0 - Summed rest score: 2 - Summed difference score: -2 Stress ejection Ejection fraction:85 % EDV :81 ml ESV :12 ml Stroke volume :69 ml LV mass :110 gr LV size:Normal Normal LV function Imaging Protocols Rest Stress Isotope:Tc99m Sestamibi IV Isotope: Tc99m Sestamibi IV Isotope dose:14.3 mCi Isotope dose:41.4 mCi Date:08/06/2016 07:30 Date:08/06/2016 09:48 Technique: SPECT Technique: Gated Supine SPECT Supine IV remains in place after procedure. Scan Time:30 minutes post injection Scan Time:45-60 minutes post injection Procedure Medications - Regadenoson (Lexiscan) 0.4 mg IV over 10-15 sec. I.V. 0.4 mg. Medical History Admission Medications + +------+ + + +---------+ !Name !Dosage!Times per day !Start date !Stop date !Details ! + +------+ + + +---------+ !Aspirin (any) ! ! ! ! ! ! + +------+ + + +---------+ Admission Data Admission date: 08/05/2016 Admission Time: 14:25 Hospital Status: Inpatient. Signatures dtt: Elma Jennings dtd: 08/06/16 0730 Physician Self Edit
--- NOTE | ~2016-08-05 | ECHO ---
Transthoracic Echocardiography Report (TTE) Demographics Patient Name REJI GILL Date of Study 08/06/2016 Patient Number [id number] Visit Number [id number] Date of 1945 Room Number G6336 Gender Female Number Age 70 year(s) Referring Klever Zamora V Vp Scientific Affairs Zelalem Trivedi Physician MD Vlad Steele [facility], RVT Physician Interpreting Dick Wills Heel Cutter Physician Supervising Ordering Klever Winter MD/MLP Physician MD Nurse Stress Intertype Operator Conclusions Contractility Score Summary Normal Left Ventricular contractility was noted. Summary The estimated left ventricular ejection fraction is 60% with normal size and WM.Mild concentric left ventricular hypertrophy. No significant valvular abnormalities. Procedure Type of Study TTE procedure:2D Echocardiogram, M-Mode, Doppler , Color Doppler. Procedure Date Date: 08/06/2016 Start: 10:09 AM Study Location: Inpatient Portable Technical Quality: Adequate visualization Indications:Chest pain. Appropriate Use Criteria: 9 Patient Status: Routine HR: 71 bpm BP: 108/51 mmHg Allergies - Other:(corticosteroids, nifedapine, felodipine). M-Mode/2D Measurements LV Diastolic Dimension: 3.4 cm LV Systolic Dimension: 2.17 cm LV Septum Diastolic: 1.1 cm LV PW Diastolic: 0.98 cm AO Root Dimension: 2.4 cm Cardiac Output: 5.69 l/min AV Cusp Separation: 1.8 cm RV Diastolic Dimension: 2.89 cm LA volume: 43 ml LVOT: 1.9 cm RV Base: 3.47 cm LVOT VTI: 28.3 cm RV Mid: 2.54 cm LV Stroke volume: 80.2 ml TAPSE: 2.23 cm TDI-S': 11.1 cm/s Doppler Measurements AV Peak Velocity: 1.44 m/s MV Peak E-Wave: 1.02 m/s AV Peak Gradient: 8.29 mmHg MV Peak A-Wave: 0.94 m/s AV Mean Gradient: 5 mmHg MV E/A Ratio: 1.09 LVOT Peak Velocity: 1.26 m/s MV P1/2t: 75 msec TR Gradient:17.31 mmHg PV Peak Velocity: 1.02 m/s PV Peak Gradient: 4.16 mmHg E' Septal Velocity: 0.05 m/s A' Septal Velocity: 0.1 m/s E' Lateral Velocity: 0.09 m/s A' Lateral Velocity: 0.07 m/s Findings Left Ventricle The left ventricle is normal in size . Mild concentric left ventricular hypertrophy. Right Ventricle Normal right ventricle structure and function. Left Atrium Normal left atrial size. Right Atrium Normal right atrial size. IVC measures 1.29 cm with inspiratory collapse. Mitral Valve Normal mitral valve structure and function. Trivial mitral regurgitation by color Doppler. Aortic Valve Normal aortic valve structure and function. Tricuspid Valve Normal tricuspid valve structure and function. Trivial tricuspid regurgitation by color Doppler. Pulmonic Valve Normal pulmonic valve structure and function. Trivial pulmonic valve regurgitation by color Doppler. Pericardial Effusion No evidence of pericardial effusion. Miscellaneous Visualized portions of the aortic root and ascending aorta appear normal in size. Pleural Effusion No evidence of pleural effusion. Contractility Score LV regional wall motion:(0-Non visualized 1-Normal 2-Hypokinesis 3-Akinesis 4-Dyskinesis 5-Aneurysm) Signature dtt: Elma Jennings dtd: 08/06/16 1009 Physician Self Edit
--- NOTE | ~2016-08-05 | CATH ---
Cardiac Diagnostic Report Demographics Patient Name BRIDGET Painting Gender Female Date of 1945 Age 70 year(s) Patient Number [id number] Date of Study 08/07/2016 Visit Number [id number] Room Number G6[address] [place] [id number] Ht 167.64 cm Wt 98.7 kg Referring Dick Primary Physician Physician Elma PEPE Performing Dick Secondary Physician Physician Elma PEPE Diagnostic Dick Assisting Physician Physician Elma PEPE Interventional Physician Ship Ceiler Physician Findings and Conclusions Diagnostic Findings and Conclusion LVEDP 5 Mild CAD Diagnostic Recommendations Medical therapy Procedure Description The patient was brought to the diagnostic cardiac catheterization-EP laboratory in the fasting, non-sedated state. Informed consent was obtained in the written and verbal form after the risks and benefits were explained. The patient had no further questions and agreed to proceed. The planned puncture-incision site(s) were shaved and prepped with ChloraPrep and draped in the usual sterile manner. Conscious sedation, supplemental oxygen, and pain control medications were delivered by a registered nurse under physician guidance. Surface ECG rhythm, blood pressure measurement, and pulse oximetry were monitored throughout the procedure. Arterial access. The access site was infiltrated with lidocaine. The vessel was entered with the Seldinger technique. A sheath was advanced into the vessel and used for catheter placement. Selective left coronary angiography. A catheter was advanced into the left coronary vessel ostium under Fluoroscopic guidance. Contrast was injected by hand. Images were obtained in multiple projections. Selective right coronary angiography. A catheter was advanced into the right coronary vessel ostium under fluoroscopic guidance. Contrast was injected by hand. Images were obtained in multiple projections. Left heart catheterization. A catheter was advanced across the aortic valve to the left ventricle under fluoroscopic guidance. Resting hemodynamics were obtained. Arterial artery hemostasis was achieved. The patient was transferred to a regular nursing floor via cart accompanied by a nurse. The patient left the laboratory in stable condition. Diagnostic Cath Status: Urgent Procedure Procedure Type Diagnostic procedure:Angiography:, Coronary Angios w/[facility] Indications: Angina. The procedure was explained in detail to the patient. Risks, complications and alternative treatments were reviewed. Written consent was obtained. Medications Reviewed with Patient prior to Procedure. Angiographic Findings Dominance: Right Cardiac Arteries and Lesion Findings LMCA: Abnormal.long luminal irregularities LAD: Abnormal.Type 2 artery prox 20% D1 medium sized with luminal irregularities Lesion on Prox LAD: Proximal subsection.20% stenosis . LCx: Abnormal.luminal irregularities RCA: Abnormal.mild diffuse luminal irregularities Coronary Tree Procedure Data Procedure Date Date: 08/07/2016Start: 02:17 PMEnd: 02:37 PM Entry Locations - Retrograde Percutaneous access was performed through the Right Femoral artery (Primary location). A 7 Fr sheath was inserted. Hemostasis was successfully obtained using Perclose ProGlide ([place]). Closure Comments: deployed by ana maria. Procedure Medications Order and Administration + + + + + !Time !Medication !Dosage !Route ! + + + + + !08/07/2016 01:53 PM !0.9% NaCl !15 ml/hr !I.V. drip ! + + + + + !08/07/2016 02:01 PM !Fentanyl !50 mcg !I.V. ! + + + + + !08/07/2016 02:14 PM !Versed !1 mg !I.V. ! + + + + + !08/07/2016 02:18 PM !Versed !1 mg !I.V. ! + + + + + !08/07/2016 02:33 PM !Fentanyl !50 mcg !I.V. ! + + + + + Devices Used - A6 Fr. BS JR 4 Diag. Catheterwas used for:Right coronary angiography. - A6 Fr. BS JL 4 Diag. Catheterwas used for:Left coronary angiography. Contrast Material - Isovue 70115 ml Fluoroscopy Time: Diagnostic: 3:30 minutes. Total: 3:30 minutes. Fluoroscopy Dose: Diagnostic: 1019 mGy. Total: 1019 mGy. Estimated Blood Loss: 15 ml. Medical History Allergies - Other:(corticosteroids, nifedapine, felodipine). - Other:(felodipine, nifedipine, corticosterroids). Risk Factors The patient risk factors include:physical activity, last creatinine: 4.6 mg/dl, creatinine clearance: 17.73 ml/min, dyslipidemia, renal failure currently treated with dialysis and former tobacco use. Admission Data Admission Date: 08/05/2016 Admission Time: 02:25 PM Admit Source: Emergency department Insurance Payors: Medicare. Admission Medications + +------+-------+ + + + + !Medication!Dosage!Times !Last !Last !Administered !Comments ! ! ! !Per Day!Delivery !Delivery ! ! ! ! ! ! !Date !Time ! ! ! + +------+-------+ + + + + !Aspirin ! ! ! ! ! ! ! !(any) ! ! ! ! ! ! ! + +------+-------+ + + + + Clinical Evaluation Leading to Procedure - The patient's CAD presentation was assessed as: Unstable angina. - The patient's anginal syndrome during the past two weeks was assessed as: Class IV according to the [place] Cardiovascular Society Classification System (CCS). [facility] Ventriculography Findings LVEDP 5 Hemodynamics Condition: Rest O2 Consumption: Estimated: 197.93Heart Rate: 79 bpm Pressures (mmHg) +-----+ + !Site !Pressure ! +-----+ + !LV !106/-1 ,2 ! +-----+ + !LV !107/-1 ,3 ! +-----+ + !AO !94/43 (63) ! +-----+ + !LV !86/2 ,8 ! +-----+ + !AO !99/48 (69) ! +-----+ + Valve Gradients and Areas + +---------+---------+---------+ +---------+ + !Valve !Peak !Mean !Area !Index !Flow !Source ! + +---------+---------+---------+ +---------+ + !Aortic !0 !0 ! ! ! ! ! + +---------+---------+---------+ +---------+ + !Aortic !0 !0 ! ! ! ! ! + +---------+---------+---------+ +---------+ + Shunts Oxygen Values O2 Capacity 146.88 O2 Consumption 197.93 Signatures dtt: Elma Jennings dtd: 08/07/16 1417 Physician Self Edit
--- NOTE | ~2016-08-05 | HP ---
PATIENT'S NAME: REJI GILL [facility] AGE: 70 Y [address] ROOM: [place] [id number] LOCATION: GPCU ADMIT DATE: 08/05/2016 History & Physical DISCHARGE DATE: FAMILY PHYSICIAN: PHYSICIAN, UNKNOWN ATTENDING PHYSICIAN: SCOTT REID V DATE OF SERVICE: CHIEF COMPLAINT: Chest pain. HISTORY OF PRESENT ILLNESS: The patient is a 70-year-old female with past medical history, most significant for end-stage renal disease, on hemodialysis. The patient developed sudden onset midsternal with radiation to the left, sharp chest pain in the course of the day. The pain is constant and mostly relieved by position. It is improved by certain position, but not exacerbated by any activity. It is not associated with fevers, chills, shortness of breath, nausea, vomiting, diarrhea, diaphoresis, or palpitations. The patient came to the ER where the pain was 7 to 8/10. She was trialed with two tablets of nitroglycerin which did not relieve her pain. Dilaudid however did bring her pain down to 5 or 6. At this point, the patient is being seen in dialysis and reports that her pain is 6/10 in intensity, midsternal however with radiation to the left and to the right and reproducible to palpation. REVIEW OF SYSTEMS: All systems have been reviewed and are negative aside from pertinent positives mentioned above. PAST MEDICAL HISTORY: Significant for end-stage renal disease, on hemodialysis; paroxysmal atrial fibrillation, on anticoagulation; history of "hepatitis" which has been cured, chronic splenomegaly, osteoporosis, and osteoarthritis. CURRENT MEDICATIONS: Being compiled by the nursing staff, but include: 1. Allopurinol. 2. Aspirin. 3. PhosLo. 4. Midodrine. 5. Prilosec. 6. Tylenol. PATIENT'S NAME: REJI GILL [facility] AGE: 70 Y [address] ROOM: [address] [address] LOCATION: GPCU ADMIT DATE: 08/05/2016 History & Physical DISCHARGE DATE: FAMILY PHYSICIAN: PHYSICIAN, UNKNOWN ATTENDING PHYSICIAN: SCOTT REID V 7. Albuterol. 8. Mylanta. 9. Compazine. SOCIAL HISTORY: Negative for any history of ongoing toxic habits. FAMILY HISTORY: Reviewed and noncontributory due to advanced age and multiple medical problems. PHYSICAL EXAMINATION: VITAL SIGNS: Blood pressure is 117/60, heart rate is in the 80s, saturating in mid 90s on room air. GENERAL: She appears as a chronically ill, middle-aged female, in no acute distress. NEUROLOGICAL: Nonfocal. OPHTHALMOLOGICAL: Eye exam shows pupils are equal and reactive to light. LYMPHATICS: Showed no cervical lymphadenopathy. ENDOCRINE: Shows no thyromegaly. LUNGS: Clear to auscultation. HEART: Rate is regular with no appreciable murmurs, gallops, or rubs. Sternal exam does reveal tenderness to palpation more pronounced over the left sternum, but is appreciable over the right anterior hemisternum. GI: Abdomen is soft, nontender, nondistended. : No costovertebral angle tenderness. VASCULAR: 2+ pedal pulses. 2+ pitting bilateral lower extremity edema. MUSCULOSKELETAL: Deferred. PSYCHIATRIC: Reveals appropriate mood, cognition, and affect. LABORATORY DATA: Studies performed in the ER are significant for EKG which shows a sinus rhythm in the 70s with no appreciable ischemic changes. Lab results are unremarkable aside from BUN of 45, creatinine 5.6, and two sets of cardiac enzymes are negative. CBC is unremarkable. CT angio of her chest is unremarkable for PEs or dissection. ASSESSMENT AND PLAN: This is a 70-year-old female who was going to be admitted for observation with: 1. Most likely noncardiac chest pain. I believe that her symptoms are most likely related to some costochondritis. We will treat her initially with opioids, but we will also start her on an NSAID regimen and observe for effect. We will also give her a lidocaine patch for her chest. Cardiology evaluation has been requested and I feel that it is appropriate as the patient has not had a cardiac workup in the past. PATIENT'S NAME: REJI GILL [facility] AGE: 70 Y [address] ROOM: [id number] [place], [place] [address] [facility] ADMIT DATE: 08/05/2016 History & Physical DISCHARGE DATE: FAMILY PHYSICIAN: PHYSICIAN, UNKNOWN ATTENDING PHYSICIAN: SCOTT REID V 2. End-stage renal disease. We will continue with hemodialysis. 3. Hypertension. We will continue with midodrine. 4. Paroxysmal atrial fibrillation. Appears to be rate controlled. Additional management will depend on clinical course. Time dedicated to this patient's encounter is 25 minutes. MD LLOYD CHÁVEZ/alix /[id number] D: [id number] T: [id number] HISTORY & PHYSICAL
--- NOTE | ~2016-08-05 | ER ---
PATIENT'S NAME: REJI GILL [facility] AGE: 70 Y [address] ROOM: [place] [address] LOCATION: GPCU ADMIT DATE: 08/05/2016 ER/Outpatient Report DISCHARGE DATE: FAMILY PHYSICIAN: PHYSICIAN, UNKNOWN ATTENDING PHYSICIAN: SCOTT REID V CHIEF COMPLAINT: Chest pain and back pain. HISTORY OF PRESENT ILLNESS: The patient states that pain started this morning and has been present since its onset around 6 or 06:30. It is pressure-like in the center of the left chest and radiates through to her back. It is sharp and dull at times. It fluctuates in intensity, but does not relent. There is a warmth associated with this. She denies any recent falls or injuries. She is a dialysis patient. She has a history of high blood pressure, diabetes, and high cholesterol. She is a distant historical smoker. She denies any fevers, chills, or cough associated with this. The pain is more on the left side and not exactly between the shoulder blades. PAST MEDICAL HISTORY: Documented on the record and reviewed by me. SOCIAL HISTORY: Documented on the record and reviewed by me. MEDICATIONS: Documented on the record and reviewed by me. ALLERGIES: DOCUMENTED ON THE RECORD AND REVIEWED BY ME. REVIEW OF SYSTEMS: All systems reviewed and negative except as noted in the HPI. PHYSICAL EXAMINATION: VITAL SIGNS: Blood pressure 138/67, pulse is 78, respiratory rate is 22, temperature 98.8, and SpO2 is 97% on room air. Pain is currently 5/10. GENERAL: Age appropriate female, in no obvious distress, in [id number]-mjuahigg pain favoring lying on her right side. NEUROLOGIC: Awake and alert. GCS is 15. No obvious gross motor deficits or asymmetry. HEENT: Normocephalic and atraumatic. Eyes are PERRL. Oropharynx is clear. NECK: Supple. Trachea is midline. PATIENT'S NAME: REJI GILL [facility] AGE: 70 Y [address] ROOM: [place] [address] LOCATION: GPCU ADMIT DATE: 08/05/2016 ER/Outpatient Report DISCHARGE DATE: FAMILY PHYSICIAN: PHYSICIAN, UNKNOWN ATTENDING PHYSICIAN: SCOTT REID V CHEST: Heart is regular rate and rhythm with no obvious murmurs. Lungs are clear to auscultation in all lung ybarra with no rhonchi, wheezes, or rales. The chest wall is nontender to palpation throughout. BACK: Nontender along the spine with no CVA tenderness, but there is some tenderness along the medial border of the left scapula. Palpation of this area does heighten her discomfort. ABDOMEN: Soft. Nontender. Nondistended. No rebound or guarding. EXTREMITIES: Notable for a fistula with palpable thrill in the left arm, otherwise grossly unremarkable. SKIN: Warm and dry. LABORATORY DATA AND X-RAYS: Chest x-ray with no appreciable changes per my read. Chest CT with no dissection, PE, pneumothorax, or pneumonia. WBC 7.8, hemoglobin 11.5, and platelets of 143. INR 0.9. Sodium 136, potassium 4.5, chloride 100, CO2 is 25, BUN is 45, creatinine is 5.6, GFR is 8, LFTs are within normal limits, magnesium 2.0, CPK 31, CK-MB 0.7, and troponin I is below detectable threshold. Repeat CPK at 30, CK-MB at 0.8, and troponin I is below threshold. EKG prior to arrival without ischemia. EKG upon arrival to the emergency department is unchanged from most recent available EKG of 07/01/2016 except for improved artifact, appears to be sinus rhythm. Repeat EKG at 2 hours roughly unchanged with no significant morphologic abnormalities. IMPRESSION: 1. Persistent chest pain. 2. Dialysis patient with azotemia. EMERGENCY DEPARTMENT COURSE: The patient was evaluated as noted above. Chief differential diagnosis included pneumothorax, pneumonia, dissection, pulmonary embolism, and acute coronary syndrome. I did not dimer her as would be high risk and with her dialysis it would have been positive. Because she had pressure and heaviness in the chest in addition to a sharp sensation associated with back pain, I was concerned about possible dissection. CT was obtained as noted above and negative for dissection. Not consistent with pneumothorax or PE on that intervention. She was given aspirin by EMS prior to arrival. Nitroglycerin and fentanyl did not improve her symptoms. Dilaudid helps somewhat. She had persistent chest pain and she was given nitroglycerin drip and she will be admitted to the Hospitalist Service for cardiac rule out. She will need dialysis today as well. She also was discussed with Dr. Jennings, who will help to evaluate her with collaborative efforts with the hospitalist. All questions were answered and the patient was ultimately admitted for persistent PATIENT'S NAME: REJI GILL [facility] AGE: 70 Y [address] ROOM: [id number] [place], [place] [address] LOCATION: [facility] ADMIT DATE: 08/05/2016 ER/Outpatient Report DISCHARGE DATE: FAMILY PHYSICIAN: PHYSICIAN, UNKNOWN ATTENDING PHYSICIAN: SCOTT REID V symptoms. The symptoms did begin to localize more posteriorly making me favor possible muscle strain, however, given her risk factors and ongoing discomfort, I think it is best to rule her out. MD MART MORILLO/alix /[id number] d: 08/06/16 0005 t: 08/06/16 0642, OUTPATIENT REPORT
--- NOTE | ~2016-08-05 | CON ---
PATIENT'S NAME: REJI GILL [facility] AGE: 70 Y [address] ROOM: [place] [address] LOCATION: GPCU ADMIT DATE: 08/05/2016 Consultation DISCHARGE DATE: FAMILY PHYSICIAN: PHYSICIAN, UNKNOWN ATTENDING PHYSICIAN: SCOTT REID V DATE OF CONSULTATION: 08/05/2016 REFERRING PHYSICIAN: Elma Jennings MD This is a [facility] Nephrology consultation. REASON FOR CONSULTATION: End-stage renal disease, on hemodialysis therapy. HISTORY OF PRESENT ILLNESS: This is a 70-year-old female patient, who is well known to Dr. Fraga, who presents to the emergency room complaining of chest pain. The patient does report the pain is localized in the anterior portion of her left chest and does radiate to her left back between her scapula and spine. The patient describes the pain as dull; however, it waxes and wanes and is sharp in nature. She does report that she noticed onset this morning after taking her dog for a walk. The patient did undergo a CT of the chest in the emergency room that was negative for PE. The patient has been admitted for further cardiac evaluation and workup. The patient does have a past medical history of end-stage renal disease, on hemodialysis therapy. 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 She undergoes hemodialysis on Friday, Friday, and Friday at [facility] here in [place], [place]. Therefore, due to a history of her end-stage renal disease, the patient is due for hemodialysis today. Therefore, Dr. Fraga in Nephrology has been asked to consult on the patient and manage her dialysis while she is hospitalized. PAST MEDICAL HISTORY: As listed above includin. End-stage renal disease. 2. History of membranoproliferative glomerulonephritis. 3. Coronary artery disease. 4. Hypothyroidism. 5. Hypertension. 6. COPD. 7. Hyperlipidemia. 8. Anemia of chronic kidney disease. PATIENT'S NAME: REJI GILL [facility] AGE: 70 Y [address] ROOM: [place] [address] LOCATION: GPCU ADMIT DATE: 08/05/2016 Consultation DISCHARGE DATE: FAMILY PHYSICIAN: PHYSICIAN, UNKNOWN ATTENDING PHYSICIAN: SCOTT REID V 9. Paroxysmal atrial fibrillation. 10. Lymphoma. PAST SURGICAL HISTORY: Includes: 1. Left upper arm primary brachiocephalic AV graft placed in April [address] Laurent. 2. Right forearm primary radiocephalic AV fistula placed by Dr. Laurent. 3. A fistulogram and angioplasty with stent placement of the left upper arm AV graft in 2013. 4. Cholecystectomy. 5. Hysterectomy. 6. History of L4 vertebroplasty. ALLERGIES: FELODIPINE, NICARDIPINE, AND PREDNISONE. CURRENT MEDICATIONS: Include: 1. Allopurinol 300 mg daily. 2. Aspirin 81 mg daily. 3. PhosLo 667 mg 2 tablets three times a day with food. 4. Levothyroxine 100 mcg daily. 5. Lorazepam 0.5 mg daily. 6. Omeprazole 20 mg daily. 7. Mylanta 30 mL as needed. SOCIAL HISTORY: The patient does live at home by herself. She does live here in [place]. She denies a history of tobacco or alcohol use. Denies illicit drug use. FAMILY HISTORY: Significant for coronary artery disease with myocardial infarction in her mother. Denies a history of kidney disease or dialysis. REVIEW OF SYSTEMS: GENERAL: Denies any fever, chills, or night sweats. EYES: No double vision or blurred vision. NOSE: No epistaxis or rhinorrhea. MOUTH: No gingival bleeding. THROAT: No sore throat, hoarseness, or cough. RESPIRATORY: Denies wheezing or hemoptysis. CARDIOVASCULAR: See HPI. GASTROINTESTINAL: Complains of some nausea now. Denies vomiting or diarrhea. MUSCULOSKELETAL: Complains of right-sided leg pain with a history of known PATIENT'S NAME: REJI GILL [facility] AGE: 70 Y [address] ROOM: [place] [address] [facility] ADMIT DATE: 08/05/2016 Consultation DISCHARGE DATE: FAMILY PHYSICIAN: PHYSICIAN, UNKNOWN ATTENDING PHYSICIAN: SCOTT REID V right tibial plateau fracture, managed by Dr. Carter. IMMUNOLOGICAL: Recent history of influenza A. HEMATOLOGIC: Denies bruising or easy bleeding. PSYCHOLOGIC: Denies depression or anxiety. LABORATORY DATA: Troponin I is less than 0.40. WBC is 7.8, hemoglobin 11.5, hematocrit 34.7, and platelets 143. Glucose 101, BUN 45, creatinine 5.6, sodium 136, potassium 4.0, CO2 is 25, calcium is 7.9, albumin 3.6, AST 19, ALT 28, alk phos 113, mag 2.0. INR is 0.9, CK-MB is 0.8. CT with and without contrast of the chest shows: 1. No aortic lesion or other acute findings. 2. Slight increased size of subcentimeter right pulmonary nodule versus 2012. This is most likely benign. Recommended one year followup chest CT. 3. Chronic splenomegaly. PHYSICAL EXAMINATION: VITAL SIGNS: Blood pressure is 113/57, pulse is 71, respirations 20, temperature is 97.5, and weight is 99.7 kg. GENERAL: On exam, this is a very pleasant, alert and oriented white female, who appears her approximate stated age and is in no acute distress. HEENT: Her head is normocephalic and atraumatic. Eyes: Pupils are equal, round, and reactive to light and accommodation. EOMs are intact. Nose is midline. Mouth: No gingival bleeding. NECK: Throat is without lymphadenopathy or carotid bruits. No JVD. LUNGS: Lung sounds are clear to auscultation anteriorly and posteriorly. The patient is on room air. CARDIOVASCULAR: Regular rate and rhythm with no appreciable murmurs, rubs, or thrills. ABDOMEN: Soft, nontender, and nondistended. Bowel sounds positive. EXTREMITIES: Show no signs of clubbing or cyanosis. NEUROLOGIC: Cranial nerves 2 through 12 are grossly intact. ASSESSMENT AND PLAN: 1. End-stage renal disease, requiring hemodialysis. The patient is due for her hemodialysis today. We will obtain her outpatient clinical record and provide hemodialysis accordingly. We will attempt aggressive ultrafiltration as tolerated. 2. Chest pain. The patient's current cardiac enzymes are negative. She PATIENT'S NAME: REJI GILL [facility] AGE: 70 Y [address] ROOM: [id number] [place], [place] [address] LOCATION: GPCU ADMIT DATE: 08/05/2016 Consultation DISCHARGE DATE: FAMILY PHYSICIAN: PHYSICIAN, UNKNOWN ATTENDING PHYSICIAN: SCOTT REID V will be admitted for further workup and evaluation at this time. Her chest pain does seem atypical in nature. Hospitalist is following. 3. Hypertension. Stable. 4. Hypotension of hemodialysis. The patient does have p.r.n. midodrine with her to take should her systolic blood pressures be difficult to maintain on hemodialysis. We will continue to monitor her closely. 5. Dyslipidemia. Continue current medications. 6. Hyperphosphatemia. This patient has been seen and assessed by Dr. Fraga. Her care is being conducted in consultation with Dr. Fraag as well as me. We will plan further recommendations as they are forthcoming. KAVON FERRARA DNP, VISCOSITY TESTER FOR M KATHERINE FRAGA MD ENS/modl /[id number] d: 08/05/16 2255 t: 08/13/16 0902, CONSULTATION REPORT
--- NOTE | ~2016-08-05 | CON ---
PATIENT'S NAME: REJI GILL [facility] AGE: 70 Y [address] ROOM: [place] [address] LOCATION: GPCU ADMIT DATE: 08/05/2016 Consultation DISCHARGE DATE: FAMILY PHYSICIAN: Swteha Parra MD ATTENDING PHYSICIAN: SCOTT REID V REFERRING PHYSICIAN: Elma Jennings MD ORTHOPEDIC CONSULTATION CHIEF COMPLAINT/REASON FOR CONSULTATION: Right knee pain. HISTORY OF PRESENT ILLNESS: This 70-year-old female with a history of chronic renal failure, on dialysis who has had pain in her right knee for over a year, but it has been worse in the past few months. It is a dull achy pain, worse with weightbearing. She has had some visits to the ER for it. I have injected her and that gives her nearly complete relief for a few days or a week, but the pain comes back. She had a fall several years ago. She has had no recent falls. She has had no fevers, chills, shortness of breath, redness, or warmth to the knee. She is currently hospitalized for possible cardiac chest pain and is to undergo cardiac catheterization tomorrow. She came to the ER yesterday with chest pain 7 to 8/10. Her knee hurts more with weightbearing. PAST MEDICAL HISTORY: ALLERGIES: SHE SAYS ALLERGIES TO MEDICATION OF FELODIPINE, NICARDIPINE, AND PREDNISONE CAUSES SWELLING IN HER FEET. NO FOOD ALLERGIES. MEDICAL HISTORY: 1. End-stage renal disease, on hemodialysis. 2. Paroxysmal atrial fibrillation, anticoagulated. 3. History of "hepatitis," which has been cured. 4. Chronic splenomegaly. 5. Osteoporosis. 6. Osteoarthritis. MEDICATIONS: 1. Allopurinol. 2. Aspirin. 3. PhosLo. 4. Midodrine. 5. Prilosec. 6. Tylenol. 7. Albuterol. PATIENT'S NAME: REJI GILL [facility] AGE: 70 Y [address] ROOM: [place] [address] LOCATION: GPCU ADMIT DATE: 08/05/2016 Consultation DISCHARGE DATE: FAMILY PHYSICIAN: Swetha Parra MD ATTENDING PHYSICIAN: SCOTT REID V 8. Mylanta. 9. Compazine. SOCIAL HISTORY: No smoking or alcohol or drug abuse. FAMILY HISTORY: Positive for cardiac problems in the family. SURGICAL HISTORY: She has had an AV shunt for hemodialysis. REVIEW OF SYSTEMS: No recent coughs, colds, fevers, chills, or sore throats. She has had chest pain. No trouble breathing, although she does become short of breath sometimes with activity, and no nausea or vomiting. She does have intermittent constipation. No dysuria or hematuria. No auditory or visual hallucinations. No skin changes or rash. No malaise. PHYSICAL EXAMINATION: GENERAL: She is an obese female, in no acute distress. She is oriented x3. Mood and affect are appropriate. VITAL SIGNS: Blood pressure is 96/53, pulse 65, respirations 16, and temperature 97.6. HEENT: Atraumatic and normocephalic. PERRL. EOMI. TMs clear. Throat clear. NECK: Supple. CHEST: Clear to auscultation. HEART: Regular rhythm. ABDOMEN: Obese, soft, and nontender. She is tender over the sternum, AC joint, and sternoclavicular joints. SPINE: Nontender. Her right knee is tender at the joint line. Drawer and Coreen's are negative. She limps when she walks. Tika's is positive. She is also tender at the proximal tibia where possible insufficiency fracture exists. There is no effusion. No warmth or redness. She has a limp. Leg lengths are equal to pelvis level. Knee alignment satisfactory. Sensation and motor function are intact in both lower extremities. Pulses good. Reflexes equal. Trace ankle edema. IMAGING STUDIES: MRI of her right knee which was done about a week ago suggest a possible insufficiency fracture of the proximal tibia. There is some bone marrow edema. There are also medial lateral meniscus tears and some moderate degenerative arthritis. X-rays of her right knee showed no fractures, but mild degenerative changes. Slight joint space narrowing, sclerosis, and PATIENT'S NAME: REJI GILL [facility] AGE: 70 Y [address] ROOM: [id number] [place], [place] [address] [facility] ADMIT DATE: 08/05/2016 Consultation DISCHARGE DATE: FAMILY PHYSICIAN: Swetha Parra MD ATTENDING PHYSICIAN: KAGANAS,SCOTT V osteophytes. IMPRESSION: 1. Right knee pain, medial and lateral meniscus tear as possible, chronic insufficiency fracture of right proximal tibia, and degenerative arthritis, right knee. 2. End-stage renal failure, on dialysis. 3. Anticoagulated with intermittent atrial fibrillation. 4. Pulmonary disease. 5. Hypertension. PLAN: Her cardiac issues are most important. Orthopedically, she can ambulate weightbearing as tolerated, but must use a walker to prevent falls. PT will see her for exercises to strengthen her quads and hamstrings and improve her overall physical condition. She can take Tylenol and narcotics for pain as prescribed by her medical doctor. Ice can be applied to the knee on a p.r.n. basis. At some point, she might need a knee arthroplasty or possibly a scope. The knee injections have given her near complete relief for short periods of time. We will follow her along. UMU WOOD MD JOSS/modl /[id number] CC: Swetha Parra MD d: 08/06/16 2321 t: 08/28/16 1114, CONSULTATION REPORT
[~2016-08-05 10:18] MED LIST changes: -COUMADIN ** IA5 MG PO; -LIPITOR40 MG PO; -MIRALAX17 GM PO; -NITROSTAT0.4 MG SL; -NORCO 5-325 TA1 EACH PO; -VELPHORO500 MG PO
[2016-08-05 10:47] LABS: BASOPHIL % 0.5 %; EOSINOPHIL # 0.1 K/uL (0.0-0.5); EOSINOPHIL % 1.4 %; HEMATOCRIT 34.7 % (33.0-46.0); HEMOGLOBIN 11.5 g/dL (10.0-15.0); IMMATURE GRANULOCYTE # 0.1 K/uL (0.0-0.3); IMMATURE GRANULOCYTE % 0.9 %; LYMPHOCYTE # 2.2 K/uL (0.8-4.0); LYMPHOCYTE % 28.7 %; MCH 33.1 pg (27.0-34.0); MCHC 33.1 gm/dL (32.0-36.5); MONOCYTE # 0.5 K/uL (0.0-1.0); MONOCYTE % 6.6 %; MPV 9.2 fl (9.4-12.4); NEUTROPHIL # (ANC) 4.8 K/uL (1.8-7.8); NEUTROPHIL % 61.9 %; NRBC % 0 /100WBC (0-0.00); PLATELET COUNT 143 K/uL (150-450); RBC 3.47 M/uL (3.50-5.50); RDW-CV 13.8 % (11.9-14.6); WBC 7.8 K/uL (4.0-11.0)
[2016-08-05 11:02] LABS: INR - (THERAPEUTIC) 0.9 (0.9-1.1); PROTIME 9.8 SECONDS (9.6-11.1); PTT 26 SECONDS (25-32)
[2016-08-05 11:05] LABS: ALBUMIN 3.6 gm/dL (3.5-5.0); ALK PHOS 113 IU/L (33-138); ALT 28 IU/L (12-78); ANION GAP 15.5 (10.0-19.0); AST 19 IU/L (10-40); BLOOD UREA NITROGEN 45 mg/dL (6-24); CALCIUM 7.9 mg/dL (8.5-10.5); CHLORIDE 100 mMol/L (96-110); CO2 25 mMol/L (22-32); CPK 31 IU/L (21-215); POTASSIUM 4.5 mMol/L (3.7-5.1); SODIUM 136 mMol/L (135-145); TOTAL PROTEIN 6.3 g/dL (6.0-8.4)
[2016-08-05 11:06] LABS: CREATININE 5.6 mg/dL (0.5-1.1); ESTIMATED GFR (MDRD EQUATION) 8; TOTAL BILIRUBIN 0.5 mg/dL (0.0-1.5)
[2016-08-05 13:19] LABS: CPK 30 IU/L (21-215)
--- NOTE | 2016-08-05 16:56 | NUR ---
Pt is 70 y/o female admit for chest pain for hospitalist. Alert and oriented x3. Pt allergic to nifedipine,corticosteroids,felodipine. Red bracelet on. Fall risk-yellow bracelet on. Hx stage 5 CKD,hemodialysis M-W- at [facility],dizzy,lightheaded,htn,hypercholest,afib,DVT's L arm,edema legs and feet,lymphoma,hypothyroid,anemia,hiatal hernia,pneumonia. Pt here last week on August 01.
--- NOTE | 2016-08-06 04:33 | NUR ---
Significant Event: Patient is alert/oriented x3. Vital signs stable. Continues on room air. Last medicated for right upper chest pain at 0300 with morphine and Tylenol. Patient reports pain gets worse with certain movement. Had dialysis yesterday, 2L taken off. NPO since midnight. Follow up: Lexiscan stress test this AM.
--- NOTE | 2016-08-06 13:06 | NUR ---
Introduced self and role of care management to patient. She lives in [place] at [facility]. She states that she is able to do all her own ADL's. She does use a walker. She does dialysis 3 times weekly and use to [employer] bus for transportation. She has family that can assist if needed. She plans on returning home on discharge. She denies any need at this time. Will continue to follow.
--- NOTE | 2016-08-06 14:56 | NUR ---
Significant Event: A/O. VSS on RA. C/O aching to L) shoulder/back that worsens with palpation. Relief with warm blanket. Emesis and nausea today, compazine x1 with relief. Stress test results pending. Dr Carter consult for R) leg pain, hx fx. Follow up:
--- NOTE | 2016-08-07 04:06 | NUR ---
Significant Event: Patient A/Ox3. VSS on RA. Patient is up stand by assist. No complaints of nausea and no emesis this shift. Permits signed for heart cath today. Follow up: Clear liquids at 0600, then NPO. Dialysis this AM. Heart cath this afternoon.
[2016-08-07 05:03] LABS: BASOPHIL % 0.4 %; EOSINOPHIL # 0.2 K/uL (0.0-0.5); EOSINOPHIL % 3.2 %; HEMATOCRIT 32.5 % (33.0-46.0); HEMOGLOBIN 10.8 g/dL (10.0-15.0); IMMATURE GRANULOCYTE % 0.4 %; LYMPHOCYTE # 1.4 K/uL (0.8-4.0); LYMPHOCYTE % 26.1 %; MCH 33.1 pg (27.0-34.0); MCHC 33.2 gm/dL (32.0-36.5); MCV 99.7 fl (83.0-98.0); MONOCYTE # 0.5 K/uL (0.0-1.0); MONOCYTE % 9.7 %; NEUTROPHIL # (ANC) 3.2 K/uL (1.8-7.8); NEUTROPHIL % 60.2 %; NRBC % 0 /100WBC (0-0.00); PLATELET COUNT 126 K/uL (150-450); RBC 3.26 M/uL (3.50-5.50); WBC 5.3 K/uL (4.0-11.0)
[2016-08-07 05:20] LABS: ANION GAP 14.3 (10.0-19.0); CALCIUM 8.5 mg/dL (8.5-10.5); POTASSIUM 4.3 mMol/L (3.7-5.1)
[2016-08-07 05:21] LABS: CREATININE 4.6 mg/dL (0.5-1.1)
--- NOTE | 2016-08-07 16:04 | NUR ---
Significant Event: A/O. VSS on RA. HD today with 1.6 off and tolerated well. dye lab technician this afternoon, no intervention. R) groin angioseal - bed rest until 1900 and may ambulate at 2099. Follow up: dismiss tomorrow.
[2016-08-08 04:15] LABS: HEMATOCRIT 32.5 % (33.0-46.0)
--- NOTE | 2016-08-08 04:24 | NUR ---
Significant Event: Patient A/Ox3. VSS on RA. HR 70s-90s. SBP 90s-140s. Afebrile. R) groin site soft, no hematoma, angioseal dressing is clean, dry and intact. Patient is up standby assist. One small void last night. No complaints of pain this shift. Follow up: Home today
[2016-08-08] MEDS ORDERED: LIPITOR40 MG PO (12:07)
[2016-08-08] MEDS ORDERED: NITROSTAT0.4 MG SL (12:09)
[2016-08-08] MEDS ORDERED: MIRALAX17 GM PO (12:10)
[2016-08-08] MEDS ORDERED: VELPHORO500 MG PO (12:10)
[2016-08-08] MEDS ORDERED: COUMADIN ** IA5 MG PO (12:11)
--- NOTE | 2016-08-08 12:40 | NUR ---
Reviewed dismissal instructions and educational handouts with patient, she verbalized understanding of all instructions. Patient taken to the main entrance via wheelchair by Deann Maciel CNA, where the [id number] bus was waiting for her.
[2016-10-08] MEDS ORDERED: ASPIRIN325 MG PO (10:43)
[2016-10-10] MEDS ORDERED: NORCO 5-325 TA1 EACH PO (11:37)
[2017-01-02] MEDS ORDERED: NORCO 5-325 TA1 EACH PO (09:15)
== END 2016-08-08 12:40 | disposition disaster alternative care site (69) ==
LOC: GMED 10:18 → GPCU 14:25
PROVIDERS: Emergency Medicine; Family Medicine; ADMIT Internal Medicine
PROC: 4A023N7 Measurement of Cardiac Sampling and Pressure, Left Heart, Percutaneous Approach (ICD-10-PCS; principal; 2016-08-07)
DX: R07.89 Other chest pain (principal); I12.0 Hypertensive chronic kidney disease with stage 5 chronic kidney disease or end stage renal disease; N18.6 End stage renal disease; I25.10 Atherosclerotic heart disease of native coronary artery without angina pectoris; D63.1 Anemia in chronic kidney disease; E78.5 Hyperlipidemia, unspecified; I48.0 Paroxysmal atrial fibrillation; E03.9 Hypothyroidism, unspecified; J44.9 Chronic obstructive pulmonary disease, unspecified; R16.1 Splenomegaly, not elsewhere classified; M81.0 Age-related osteoporosis without current pathological fracture; M19.90 Unspecified osteoarthritis, unspecified site; E83.39 Other disorders of phosphorus metabolism; Z88.8 Allergy status to other drugs, medicaments and biological substances; Z98.890 Other specified postprocedural states; Z90.49 Acquired absence of other specified parts of digestive tract; Z90.710 Acquired absence of both cervix and uterus; Z79.01 Long term (current) use of anticoagulants; Z79.82 Long term (current) use of aspirin; Z79.899 Other long term (current) drug therapy
CPT/HCPCS: A9500; C1760; C9113; G0378; G8978; G8979; G8980; J1170; J1644; J2250; J2270; J2785; J3010; J7030; P9047; Q0164; Q9967

== ENCOUNTER → 2016-08-05 | Outpatient (CLI) | payer MEDICARE, MEDICAID ==
[~2016-08-05] MED LIST changes: +COUMADIN ** IA5 MG PO; +LIPITOR40 MG PO; +MIRALAX17 GM PO; +NITROSTAT0.4 MG SL; +NORCO 5-325 TA1 EACH PO; +VELPHORO500 MG PO
== END | disposition disaster alternative care site (69) ==
LOC: GAMB 09:58
DX: R07.89 Other chest pain (principal); I50.9 Heart failure, unspecified; N18.3 Chronic kidney disease, stage 3 (moderate); M79.602 Pain in left arm; M25.512 Pain in left shoulder; Z79.899 Other long term (current) drug therapy; Z88.8 Allergy status to other drugs, medicaments and biological substances
CPT/HCPCS: A0425; A0427

== ENCOUNTER → 2016-08-14 | Outpatient (CLI) | payer MEDICARE, MEDICAID ==
[~2016-08-14] MED LIST changes: +COUMADIN ** IA5 MG PO; +LIPITOR40 MG PO; +MIRALAX17 GM PO; +NITROSTAT0.4 MG SL; +NORCO 5-325 TA1 EACH PO; +VELPHORO500 MG PO
[2016-08-14 12:38] LABS: INR - (THERAPEUTIC) 1.3 (0.9-1.1); PROTIME 13.4 SECONDS (9.6-11.1)
== END | disposition disaster alternative care site (69) ==
LOC: LGSMG 12:27
PROVIDERS: Nurse Practitioner
DX: T82.590A Other mechanical complication of surgically created arteriovenous fistula, initial encounter (principal); N18.6 End stage renal disease

== ENCOUNTER → 2016-08-14 | Outpatient (CLI) | payer MEDICARE, MEDICAID ==
[2016-08-14 14:02] LABS: BASOPHIL % 0.3 %; EOSINOPHIL # 0.1 K/uL (0.0-0.5); EOSINOPHIL % 1.7 %; HEMATOCRIT 33.6 % (33.0-46.0); IMMATURE GRANULOCYTE % 0.4 %; LYMPHOCYTE # 1.9 K/uL (0.8-4.0); LYMPHOCYTE % 26.3 %; MCH 32.8 pg (27.0-34.0); MCHC 32.7 gm/dL (32.0-36.5); MCV 100.3 fl (83.0-98.0); MONOCYTE # 0.6 K/uL (0.0-1.0); MONOCYTE % 8.2 %; NEUTROPHIL # (ANC) 4.5 K/uL (1.8-7.8); NEUTROPHIL % 63.1 %; NRBC % 0 /100WBC (0-0.00); PLATELET COUNT 138 K/uL (150-450); RBC 3.35 M/uL (3.50-5.50); RDW-CV 13.9 % (11.9-14.6); WBC 7.1 K/uL (4.0-11.0)
[2016-08-14 14:09] LABS: INR - (THERAPEUTIC) 1.3 (0.9-1.1); PROTIME 13.4 SECONDS (9.6-11.1)
== END | disposition disaster alternative care site (69) ==
LOC: GOPD 12:00
PROVIDERS: Nurse Practitioner
PROC: 05HM33Z Insertion of Infusion Device into Right Internal Jugular Vein, Percutaneous Approach (ICD-10-PCS; principal; 2016-08-14)
PROC: B513YZA Fluoroscopy of Right Jugular Veins using Other Contrast, Guidance (ICD-10-PCS; 2016-08-14)
DX: T82.590A Other mechanical complication of surgically created arteriovenous fistula, initial encounter (principal); R07.9 Chest pain, unspecified
CPT/HCPCS: C1750; J1644; J2001; J2250; J3010

== ENCOUNTER 2016-09-06 08:26 | Emergency (ER) | payer MEDICARE, MEDICAID ==
--- NOTE | ~2016-09-06 | ER ---
PATIENT'S NAME: REJI GILL [facility] AGE: 70 Y [address] ROOM: [place] [address] LOCATION: [facility] ADMIT DATE: 09/06/2016 ER/Outpatient Report DISCHARGE DATE: 09/06/2016 FAMILY PHYSICIAN: Swetha Parra MD ATTENDING PHYSICIAN: Ramona Garcia Time of Arrival: 0826 hours. Time Seen: 0827 hours. IDENTIFICATION: A 70-year-old female. CHIEF COMPLAINT: Dizziness. HISTORY OF PRESENT ILLNESS: The patient is a 70-year-old female who arrived by ambulance with complaints of nausea, vomiting, and dizziness. She said when she woke up 1 hour ago she moved and she felt dizzy like she was going to pass out. When you try to have her describe her dizziness, she just describes it as dizziness. At times, she says things are spinning, but she just feels like she is going to "go down." She has nausea associated with this. She has had vertigo in the past and she states that this feels somewhat similar. She has no chest pain. No cough or shortness of breath. PAST MEDICAL HISTORY: ALLERGIES: FELODIPINE, CORTICOSTEROIDS, NIFEDIPINE, PREDNISONE, AND FAMOTIDINE. CURRENT MEDICATIONS: 1. Midodrine 10 mg 1 tablet by mouth every other day on dialysis days. 2. Omeprazole 20 mg once daily. 3. Aspirin 325 mg daily. 4. Allopurinol 300 mg 1/2 tablet daily. 5. Mylanta p.r.n. 6. MiraLAX 17 g daily. 7. Warfarin 5 mg daily. 8. Atorvastatin 40 mg daily. 9. Nitroglycerin p.r.n. 10. PhosLo 500 mg 2 per meal. 11. Compazine 10 mg q.8 hours p.r.n. MEDICAL PROBLEMS: End-stage renal disease, on hemodialysis; paroxysmal atrial fibrillation, on PATIENT'S NAME: REJI GILL [facility] AGE: 70 Y [address] ROOM: [place] [address] LOCATION: [facility] ADMIT DATE: 09/06/2016 ER/Outpatient Report DISCHARGE DATE: 09/06/2016 FAMILY PHYSICIAN: Swetha Parra MD ATTENDING PHYSICIAN: Ramona Garcia chronic anticoagulation; chronic splenomegaly; osteoporosis; osteoarthritis; hepatitis; coronary artery disease; hypothyroidism; hypertension; COPD; anemia of chronic disease; and history of lymphoma. PRIOR SURGERIES: Left upper arm primary brachiocephalic fistula in 2011, currently nonfunctioning; right forearm AV fistula; cholecystectomy; hysterectomy; L4 vertebroplasty; and central dialysis catheter, right upper chest. SOCIAL HISTORY: The patient lives at home by herself. Tobacco use, denies. Drug use, denies. Alcohol use, denies. FAMILY HISTORY: Positive for coronary artery disease with previous [place] in her mother. REVIEW OF SYSTEMS: All systems reviewed and negative other than what is noted in the HPI. PHYSICAL EXAMINATION: VITAL SIGNS: Weight 95.6 kg, blood pressure 134/71, pulse 65, respirations 20, temperature 97.4, and saturations 99% on room air. GENERAL: A 70-year-old female, in no acute distress. HEENT: Head: Normocephalic, atraumatic. Ears: TMs translucent, both ears. Eyes: Pupils equal and reactive to light and accommodation. Extraocular movements intact. No nystagmus. Nose: Mucosa pink. No lesions. Mouth: No lesions. Pharynx benign. NECK: Supple. No lymphadenopathy. LUNGS: Clear to auscultation. HEART: Regular rate and rhythm. ABDOMEN: Soft, nondistended, and nontender. SKIN: [place], warm, and dry. No lesions or rashes noted. NEURO: The patient is alert and oriented x4. Cranial nerves 2 through 12 grossly intact. Motor strength 5/5 throughout. Sensation is intact to light touch. Trace of lower extremity edema. No calf tenderness. EMERGENCY DEPARTMENT COURSE: Her symptoms reproduced with movement and even just rolling over. Orthostatic blood pressures were checked and she has no orthostatic hypotension. Please refer the nurse's notes. The patient was given meclizine 12.5 mg which improved her symptoms significantly. She also received Zofran 4 mg IV for nausea. DIAGNOSTIC DATA: Pre-hospital EKG: Normal sinus rhythm at 72 beats per minute, no acute ST PATIENT'S NAME: REJI GILL [facility] AGE: 70 Y [address] ROOM: [place] [address] LOCATION: ED ADMIT DATE: 09/06/2016 ER/Outpatient Report DISCHARGE DATE: 09/06/2016 FAMILY PHYSICIAN: Swetha Parra MD ATTENDING PHYSICIAN: Ramona Garcia elevation or depression. EKG here, normal sinus rhythm at 65 beats per minute, no acute ST elevation or depression, nonspecific ST-T wave changes. Sodium 141, potassium 3.6, chloride 105, CO2 of 25, BUN 25, creatinine 4.0, and blood sugar 118. Liver enzymes normal. Magnesium 2.2. CK 28, CK-MB 0.7, and troponin I less than 0.040. Hemoglobin 11.3; hematocrit 33.8; and platelets low at 108, platelet count 138, August 14; white blood cell count 5.3 with a normal differential. INR subtherapeutic at 0.94, previous INR 1.2 on august 23. One-view chest x-ray, no acute process. Tunnel dialysis catheter in place. Head CT, no acute findings per Radiology. IMPRESSION: 1. Vertigo. 2. Thrombocytopenia. 3. Subtherapeutic INR. PLAN: Meclizine 25 mg 1/2 tab p.o. q.8 hours p.r.n. dizziness, dispensed 10, this was called [facility] to be delivered to her. Dialysis as scheduled. Discussed with her primary care physician of her subtherapeutic INR and follow up with Dr. Parra next week. Follow up sooner if any problems or concerns. The patient understands and agrees, and all questions have been answered. RAMONA GARCIA MD CAR/modl /[id number] d: 09/06/162108 t: 09/10/16 0649, OUTPATIENT REPORT
[~2016-09-06 08:26] MED LIST changes: -NORCO 5-325 TA1 EACH PO
[2016-09-06 09:04] LABS: BASOPHIL % 0.6 %; EOSINOPHIL # 0.1 K/uL (0.0-0.5); EOSINOPHIL % 2.5 %; HEMATOCRIT 33.8 % (33.0-46.0); HEMOGLOBIN 11.3 g/dL (10.0-15.0); IMMATURE GRANULOCYTE % 0.2 %; LYMPHOCYTE # 1.4 K/uL (0.8-4.0); LYMPHOCYTE % 27.2 %; MCH 32.9 pg (27.0-34.0); MCHC 33.4 gm/dL (32.0-36.5); MCV 98.5 fl (83.0-98.0); MONOCYTE # 0.4 K/uL (0.0-1.0); MONOCYTE % 8.3 %; MPV 9.5 fl (9.4-12.4); NEUTROPHIL # (ANC) 3.2 K/uL (1.8-7.8); NEUTROPHIL % 61.2 %; NRBC % 0 /100WBC (0-0.00); PLATELET COUNT 108 K/uL (150-450); RBC 3.43 M/uL (3.50-5.50); RDW-CV 13.2 % (11.9-14.6); WBC 5.3 K/uL (4.0-11.0)
[2016-09-06 09:13] LABS: INR - (THERAPEUTIC) 0.94 (0.92-1.07); PROTIME 9.9 SECONDS (9.8-11.4); PTT 26 SECONDS (25-32)
[2016-09-06 09:23] LABS: ALBUMIN 3.2 gm/dL (3.5-5.0); ALK PHOS 123 IU/L (33-138); ALT 30 IU/L (12-78); ANION GAP 14.6 (10.0-19.0); AST 18 IU/L (10-40); BLOOD UREA NITROGEN 25 mg/dL (6-24); CALCIUM 8.1 mg/dL (8.5-10.5); CHLORIDE 105 mMol/L (96-110); CO2 25 mMol/L (22-32); CPK 28 IU/L (21-215); MAGNESIUM 2.2 mg/dL (1.8-2.6); POTASSIUM 3.6 mMol/L (3.7-5.1); SODIUM 141 mMol/L (135-145); TOTAL BILIRUBIN 0.5 mg/dL (0.0-1.5); TOTAL PROTEIN 5.8 g/dL (6.0-8.4)
[2016-09-06 09:24] LABS: ESTIMATED GFR (MDRD EQUATION) 11
[2016-10-08] MEDS ORDERED: ASPIRIN325 MG PO (10:43)
[2016-10-10] MEDS ORDERED: NORCO 5-325 TA1 EACH PO (11:37)
[2017-01-02] MEDS ORDERED: NORCO 5-325 TA1 EACH PO (09:15)
== END 2016-09-06 11:35 | disposition disaster alternative care site (69) ==
LOC: GMED 08:26
PROVIDERS: Family Medicine
DX: R42 Dizziness and giddiness (principal); D69.6 Thrombocytopenia, unspecified; I12.0 Hypertensive chronic kidney disease with stage 5 chronic kidney disease or end stage renal disease; N18.6 End stage renal disease; I48.0 Paroxysmal atrial fibrillation; M81.0 Age-related osteoporosis without current pathological fracture; M19.90 Unspecified osteoarthritis, unspecified site; E03.9 Hypothyroidism, unspecified; J44.9 Chronic obstructive pulmonary disease, unspecified; Z79.82 Long term (current) use of aspirin; Z79.899 Other long term (current) drug therapy; Z88.8 Allergy status to other drugs, medicaments and biological substances; Z99.2 Dependence on renal dialysis; Z90.49 Acquired absence of other specified parts of digestive tract; Z90.710 Acquired absence of both cervix and uterus
CPT/HCPCS: J2405; J7030

== ENCOUNTER → 2016-09-06 | Outpatient (CLI) | payer MEDICARE, MEDICAID | END | disposition disaster alternative care site (69) | LOC: GAMB 08:09 | DX: R53.1 Weakness (principal); R11.0 Nausea; R42 Dizziness and giddiness; N18.3 Chronic kidney disease, stage 3 (moderate); K21.9 Gastro-esophageal reflux disease without esophagitis; Z79.899 Other long term (current) drug therapy | CPT/HCPCS: A0422; A0425; A0427 ==

== ENCOUNTER → 2016-10-10 | Day surgery (SDC) | payer MEDICARE, MEDICAID ==
[~2016-10-10] VITALS: Ht 165.1 cm; Wt 94.7 kg
[~2016-10-10] MED LIST changes: +NORCO 5-325 TA1 EACH PO
--- NOTE | ~2016-10-10 | OR ---
PATIENT'S NAME: REJI GILL [facility] AGE: 70 Y [address] ROOM: [place], [place] [address] LOCATION: [facility] ADMIT DATE: 10/10/2016 OR/Procedure Report DISCHARGE DATE: FAMILY PHYSICIAN: Swetha Parra MD ATTENDING PHYSICIAN: SIXTO CAMPOVERDE SURGEON: Sixto Campoverde MD REPORTING ANALYST: DATE OF PROCEDURE: 10/10/2016 PREOPERATIVE DIAGNOSIS: End-stage renal disease. POSTOPERATIVE DIAGNOSIS: End-stage renal disease. PROCEDURE: Right arm brachiobasilic AV fistula. STITCHDOWN TOE FORMER: RAINER Barraza. ANESTHESIA: General. ESTIMATED BLOOD LOSS: 5 mL. OPERATIVE FINDINGS: Good thrill and bruit. Strong radial and ulnar signal at the end of the case. DESCRIPTION OF PROCEDURE: The patient was brought to the operating room and placed supine on the operative table, placed under general anesthesia, and prepped and draped in a sterile manner. Preoperative time-out was performed. The patient received preoperative antibiotics. We made a standard incision 2 cm proximal to the antecubital fossa, dissected down the fascia, incised the fascia in a longitudinal manner, dissected out the brachial artery. We performed the same maneuver on the basilic vein. We then transected it distally. We gave 5000 units of heparin. We made an arteriotomy to a size of 4 mm. We then did a standard 6-0 Prolene anastomosis from the vein to the artery. We removed the clamps. There was excellent flow into the fistula. Protamine was used to reverse the heparin. Deep layers were closed with 2-0 and 3-0 Vicryl. Thrombin was used locally in the wound for hemostasis. The skin was closed with running 4-0 Monocryl. The patient tolerated the procedure well and transferred to recovery room and then home later that day. SIXTO CAMPOVERDE MD [facility]/modl PATIENT'S NAME: REJI GILL [facility] AGE: 70 Y [address] ROOM: [place], [place] [address] LOCATION: [facility] ADMIT DATE: 10/10/2016 OR/Procedure Report DISCHARGE DATE: FAMILY PHYSICIAN: Swetha Parra MD ATTENDING PHYSICIAN: SIXTO CAMPOVERDE /[id number] d: 10/10/16 2319 t: 10/11/16 1001, OPERATIVE SUMMARY
[2016-10-10 07:57] LABS: BASOPHIL % 0.4 %; EOSINOPHIL # 0.1 K/uL (0.0-0.5); EOSINOPHIL % 1.9 %; HEMOGLOBIN 10.4 g/dL (10.0-15.0); IMMATURE GRANULOCYTE % 0.2 %; LYMPHOCYTE # 1.7 K/uL (0.8-4.0); LYMPHOCYTE % 31.1 %; MCH 31.8 pg (27.0-34.0); MCHC 32.5 gm/dL (32.0-36.5); MCV 97.9 fl (83.0-98.0); MONOCYTE # 0.4 K/uL (0.0-1.0); MONOCYTE % 7.1 %; MPV 9.2 fl (9.4-12.4); NEUTROPHIL # (ANC) 3.2 K/uL (1.8-7.8); NEUTROPHIL % 59.3 %; NRBC % 0 /100WBC (0-0.00); PLATELET COUNT 114 K/uL (150-450); RBC 3.27 M/uL (3.50-5.50); RDW-CV 12.9 % (11.9-14.6); WBC 5.3 K/uL (4.0-11.0)
[2016-10-10 08:10] LABS: INR - (THERAPEUTIC) 0.92 (0.92-1.07); PROTIME 9.6 SECONDS (9.8-11.4)
[2016-10-10 08:13] LABS: ALBUMIN 3.3 gm/dL (3.5-5.0); ANION GAP 12.4 (10.0-19.0); POTASSIUM 4.4 mMol/L (3.7-5.1); TOTAL BILIRUBIN 0.4 mg/dL (0.0-1.5)
== END | disposition disaster alternative care site (69) ==
LOC: GPOC 10-08 11:00 → GSDC 07:04 → GPOC 07:30
PROVIDERS: Surgery Vascular Surgery
PROC: 03170AD Bypass Right Brachial Artery to Upper Arm Vein with Autologous Arterial Tissue, Open Approach (ICD-10-PCS; principal; 2016-10-10)
DX: N18.6 End stage renal disease (principal); I25.10 Atherosclerotic heart disease of native coronary artery without angina pectoris; K21.9 Gastro-esophageal reflux disease without esophagitis; Z87.891 Personal history of nicotine dependence; Z99.2 Dependence on renal dialysis; Z88.8 Allergy status to other drugs, medicaments and biological substances
CPT/HCPCS: J0690; J1644; J2550; J2720; J3010; J7030

== ENCOUNTER → 2017-01-02 | Day surgery (SDC) | payer MEDICARE, MEDICAID ==
[~2017-01-02] VITALS: Ht 165.1 cm; Wt 94.5 kg
--- NOTE | ~2017-01-02 | OR ---
PATIENT'S NAME: REJI GILL [facility] AGE: 71 Y [address] ROOM: [place] [address] LOCATION: [facility] ADMIT DATE: 01/02/2017 OR/Procedure Report DISCHARGE DATE: FAMILY PHYSICIAN: Swetha Parra MD ATTENDING PHYSICIAN: SIXTO CAMPOVERDE SURGEON: Sixto Campoverde MD [employer]: DATE OF PROCEDURE: 01/02/2017 PREOPERATIVE DIAGNOSIS: End-stage renal disease. POSTOPERATIVE DIAGNOSIS: End-stage renal disease. PROCEDURE PERFORMED: Right arm brachiobasilic AV fistula revision with creation of new right arm brachiobasilic fistula. PERIANESTHESIA NURSE: Perla Kaur APRN. She assisted in the case with retraction, sewing, and closure of the wound and was required for the case. ANESTHESIA: General. ESTIMATED FLUID LOSS: 10 mL. OPERATIVE FINDINGS: Good thrill and bruit in the basilic fistula at the end of case. Strong radial and ulnar signal at the end of the case. PROCEDURE IN DETAIL: The patient was brought to the operating room, placed supine on the operating room table. Placed under general anesthesia, prepped and draped in a sterile manner. Preoperative time-out was performed. The patient received preoperative antibiotics. We performed a bedside ultrasound prior to surgery in the office; it was deemed that her fistula, her brachial basilic had occluded and had no flow. We entered the surgery thinking that we would be performing a brachioaxillary AV graft but on the preop ultrasound, it showed that there was still flow in the fistula, although it was poor and that her basilic vein was still patent. We did incision 2 cm proximal to the antecubital fossa, dissected down the fascia, incised the fascia in a longitudinal manner. Dissected out the brachial artery in a 360-degree fashion. We then dissected out the basilic vein. We then transected the vein from its previous anastomosis and then we dissected the basilic artery more proximally. We then gave 5000 units of heparin. We clamped proximally the distal artery, made arteriotomy size of 5 mm, then did a standard 6-0 Prolene anastomosis from the vein to the artery with excellent flow noted into the vein which was confirmed with the use of Doppler. There was a strong radial and ulnar signal. We used a total of 5000 units of heparin which was reversed with protamine. Deep layers were closed with 2-0 and 3-0 Vicryl. Skin was PATIENT'S NAME: REJI GILL [facility] AGE: 71 Y [address] ROOM: [place], [place] [address] LOCATION: [facility] ADMIT DATE: 01/02/2017 OR/Procedure Report DISCHARGE DATE: FAMILY PHYSICIAN: Swetha Parra MD ATTENDING PHYSICIAN: SIXTO CAMPOVERDE closed with running 4-0 Monocryl. The patient tolerated the procedure well and was transferred to the recovery room and home later that day. MD ANEGLO JACOBSM/alix /[id number] P d: 01/02/17 1846 t: 01/12/17 1626, OPERATIVE SUMMARY
[2017-01-02 06:37] LABS: BASOPHIL % 0.6 %; EOSINOPHIL # 0.1 K/uL (0.0-0.5); EOSINOPHIL % 1.6 %; HEMATOCRIT 31.9 % (33.0-46.0); HEMOGLOBIN 10.7 g/dL (10.0-15.0); IMMATURE GRANULOCYTE % 0.2 %; LYMPHOCYTE # 1.6 K/uL (0.8-4.0); LYMPHOCYTE % 30.8 %; MCHC 33.5 gm/dL (32.0-36.5); MCV 98.5 fl (83.0-98.0); MONOCYTE # 0.4 K/uL (0.0-1.0); MONOCYTE % 8.3 %; NEUTROPHIL % 58.5 %; NRBC % 0 /100WBC (0-0.00); PLATELET COUNT 98 K/uL (150-450); RBC 3.24 M/uL (3.50-5.50); RDW-CV 13.4 % (11.9-14.6); WBC 5.1 K/uL (4.0-11.0)
[2017-01-02 06:42] LABS: INR - (THERAPEUTIC) 0.92 (0.92-1.07); PROTIME 9.7 SECONDS (9.8-11.4)
[2017-01-02 06:55] LABS: ALBUMIN 3.5 gm/dL (3.5-5.0); ANION GAP 11.3 (10.0-19.0); CALCIUM 8.1 mg/dL (8.5-10.5); CREATININE 3.2 mg/dL (0.5-1.1); POTASSIUM 4.3 mMol/L (3.7-5.1); TOTAL BILIRUBIN 0.4 mg/dL (0.0-1.5); TOTAL PROTEIN 6.4 g/dL (6.0-8.4)
== END | disposition disaster alternative care site (69) ==
LOC: GPOC 12-30 08:00 → GSDC 05:57
PROVIDERS: Surgery Vascular Surgery
PROC: 03WY07Z Revision of Autologous Tissue Substitute in Upper Artery, Open Approach (ICD-10-PCS; principal; 2017-01-02)
DX: T82.868A Thrombosis due to vascular prosthetic devices, implants and grafts, initial encounter (principal); I12.0 Hypertensive chronic kidney disease with stage 5 chronic kidney disease or end stage renal disease; N18.6 End stage renal disease; I25.10 Atherosclerotic heart disease of native coronary artery without angina pectoris; I48.91 Unspecified atrial fibrillation; E78.5 Hyperlipidemia, unspecified; M81.0 Age-related osteoporosis without current pathological fracture; Z88.8 Allergy status to other drugs, medicaments and biological substances; Z79.899 Other long term (current) drug therapy; Y83.8 Other surgical procedures as the cause of abnormal reaction of the patient, or of later complication, without mention of misadventure at the time of the procedure; Z98.890 Other specified postprocedural states
CPT/HCPCS: J0690; J1644; J2001; J2405; J2720; J3010; J7030

== ENCOUNTER 2017-01-12 15:41 | Emergency (ER) | payer MEDICARE, MEDICAID ==
--- NOTE | ~2017-01-12 | ER ---
PATIENT'S NAME: REJI GILL [facility] AGE: 71 Y [address] ROOM: [place] [address] LOCATION: [facility] ADMIT DATE: 01/12/2017 ER/Outpatient Report DISCHARGE DATE: 01/12/2017 FAMILY PHYSICIAN: Swetha Parra MD ATTENDING PHYSICIAN: Jimmy Dior Time of Arrival: 1540 hours. Time of Exam: 1540 hours. CHIEF COMPLAINT: Abdominal pain. HISTORY OF PRESENT ILLNESS: The patient arrived per ambulance. She states that she has not felt well for the past 24 hours. Today, she was outside with her dog when she became weak and just did not feel as though things were right. She had some dizziness. Denied having any pain anywhere, was a little short of breath, became nauseated, and has had fever off and on and does have some problems urinating. She does have a history of kidney failure, but does make urine. ALLERGIES: ON THE CHART AND REVIEWED BY ME. MEDICATIONS: On the chart and reviewed by me. PAST MEDICAL HISTORY: End-stage renal disease, receives hemodialysis; paroxysmal atrial fibrillation; history of hepatitis; chronic splenomegaly; osteoporosis; osteoarthritis; congestive heart failure. PAST SURGERIES: On her medical records and reviewed by me. SOCIAL HISTORY: She denies use of tobacco, drugs, or alcohol. REVIEW OF SYSTEMS: Negative other than those mentioned in the HPI. PHYSICAL EXAMINATION: VITAL SIGNS: She weighed 97.5 kg, blood pressure is 142/73, pulse of 86, respirations 20, temperature of 98.2, and O2 saturation was 95% on room air. GENERAL: She is awake, alert, and oriented x4. SKIN: [place], warm, and dry. PATIENT'S NAME: REJI GILL [facility] AGE: 71 Y [address] ROOM: [place] [address] LOCATION: [facility] ADMIT DATE: 01/12/2017 ER/Outpatient Report DISCHARGE DATE: 01/12/2017 FAMILY PHYSICIAN: Swetha Parra MD ATTENDING PHYSICIAN: Jimmy Dior RESPIRATIONS: Even and nonlabored. Lung sounds are clear throughout. HEART: Regular rate and rhythm. ABDOMEN: Soft, nondistended. Bowel sounds are present. She has some generalized abdominal tenderness, right upper quadrant primarily. SKIN: She does have some bilateral pedal edema. No open lesions of her skin are noted. EMERGENCY ROOM COURSE: Saline lock was initiated. She was given Zofran 4 mg IV. Lab work was done. CBC shows white count of 6.2, hemoglobin is 10.1, and hematocrit of 29.4. Chem Panel: Sodium 133, potassium 3.7, chloride 97, glucose 98, BUN 37 with creatinine 5.4. Cardiac enzymes are negative. Amylase was 28 with lipase of 62. Lactate was 0.9. Procalcitonin was 0.42. A cath UA was obtained, negative for infection. She was given 500 mL of normal saline. Orthostatic blood pressure was obtained, lying was 138/68, sitting 157/71, and standing 172/73. She did ambulate to the bathroom, states she was feeling better, had some mild dizziness. She was monitored. Symptoms continued to improve. IMPRESSION: Dizziness. PLAN: Home, rest. Continue her current medications. Dialysis tomorrow as scheduled. If symptoms worsen, she is to follow up with her primary provider. She verbalized understanding. ALEXX CHE APRN FOR MD DANILO MORILLO/alix /[id number] d: 01/12/17 2157 t: 01/21/17 0632, OUTPATIENT REPORT
[2017-01-12 16:27] LABS: BILIRUBIN URINE NEGATIVE (NEGATIVE); BLOOD URINE 50 /UL (NEGATIVE); COLOR URINE YELLOW (YELLOW); GLUCOSE URINE NEGATIVE (NEGATIVE); KETONE URINE NEGATIVE (NEGATIVE); LEUKOCYTES URINE NEGATIVE /UL (NEGATIVE); NITRITE URINE NEGATIVE (NEGATIVE); PROTEIN URINE 30 mg/dL (NEGATIVE); TURBIDITY URINE CLEAR (CLEAR); UROBILINOGEN URINE NORMAL (NORMAL)
[2017-01-12 16:33] LABS: BACTERIA URINE NEGATIVE (NEGATIVE); WBC URINE NEGATIVE #/HPF (NEGATIVE)
[2017-01-12 16:37] LABS: BASOPHIL % 0.5 %; EOSINOPHIL # 0.1 K/uL (0.0-0.5); EOSINOPHIL % 1.5 %; HEMATOCRIT 29.4 % (33.0-46.0); HEMOGLOBIN 10.1 g/dL (10.0-15.0); IMMATURE GRANULOCYTE % 0.5 %; LYMPHOCYTE # 1.6 K/uL (0.8-4.0); LYMPHOCYTE % 25.9 %; MCH 33.2 pg (27.0-34.0); MCHC 34.4 gm/dL (32.0-36.5); MCV 96.7 fl (83.0-98.0); MONOCYTE # 0.5 K/uL (0.0-1.0); MONOCYTE % 7.9 %; MPV 9.1 fl (9.4-12.4); NEUTROPHIL # (ANC) 3.9 K/uL (1.8-7.8); NEUTROPHIL % 63.7 %; NRBC % 0 /100WBC (0-0.00); PLATELET COUNT 101 K/uL (150-450); RBC 3.04 M/uL (3.50-5.50); RDW-CV 13.7 % (11.9-14.6); WBC 6.2 K/uL (4.0-11.0)
[2017-01-12 16:59] LABS: ALBUMIN 3.4 gm/dL (3.5-5.0); ALK PHOS 117 IU/L (33-138); ALT 15 IU/L (12-78); ANION GAP 13.7 (10.0-19.0); AST 16 IU/L (10-40); BLOOD UREA NITROGEN 37 mg/dL (6-24); CHLORIDE 97 mMol/L (96-110); CO2 26 mMol/L (22-32); CPK 40 IU/L (21-215); POTASSIUM 3.7 mMol/L (3.7-5.1); SODIUM 133 mMol/L (135-145); TOTAL BILIRUBIN 0.4 mg/dL (0.0-1.5); TOTAL PROTEIN 6.3 g/dL (6.0-8.4)
[2017-01-12 17:01] LABS: CREATININE 5.4 mg/dL (0.5-1.1)
== END 2017-01-12 18:50 | disposition disaster alternative care site (69) ==
LOC: GMED 15:41
PROVIDERS: Nurse Practitioner Family
DX: R42 Dizziness and giddiness (principal); N18.6 End stage renal disease; I50.9 Heart failure, unspecified; I48.0 Paroxysmal atrial fibrillation; M81.0 Age-related osteoporosis without current pathological fracture; M19.90 Unspecified osteoarthritis, unspecified site; Z79.899 Other long term (current) drug therapy; Z86.19 Personal history of other infectious and parasitic diseases; Z99.2 Dependence on renal dialysis
CPT/HCPCS: J2405; J7040

== ENCOUNTER → 2017-01-12 | Outpatient (CLI) | payer MEDICARE, MEDICAID | END | disposition disaster alternative care site (69) | LOC: GAMB 15:23 | DX: R53.1 Weakness (principal); K21.9 Gastro-esophageal reflux disease without esophagitis; I50.9 Heart failure, unspecified; N18.3 Chronic kidney disease, stage 3 (moderate); M10.9 Gout, unspecified; I95.9 Hypotension, unspecified; R53.81 Other malaise; R11.0 Nausea; Z79.891 Long term (current) use of opiate analgesic; Z79.899 Other long term (current) drug therapy; Z88.8 Allergy status to other drugs, medicaments and biological substances | CPT/HCPCS: A0425; A0429 ==

== ENCOUNTER 2017-02-03 16:27 | Emergency (ER) | payer MEDICARE, MEDICAID ==
--- NOTE | ~2017-02-03 | ER ---
PATIENT'S NAME: REJI GILL [facility] AGE: 71 Y [address] ROOM: [place] [address] LOCATION: [facility] ADMIT DATE: 02/03/2017 ER/Outpatient Report DISCHARGE DATE: 02/03/2017 FAMILY PHYSICIAN: Swetha Parra MD ATTENDING PHYSICIAN: Jimmy Dior ADDENDUM: This is an addendum to Dr. Dior's dictation. Please see his dictation for chief complaint, history of present illness, past medical history, past surgical history, social history, allergies, medications, review of systems, and physical exam. I was asked to follow up on the 2-hour cardiac enzymes. The patient's laboratory analysis is reviewed by myself. Urinalysis is unremarkable. CBC is unremarkable except for platelets of 99. Cardiac enzymes are normal. Free T4 is normal. TSH is 7.77. EKG that was obtained at 1611 hours shows sinus rhythm with a rate of 85, normal axis, normal interval; no ST elevation, ST depression, or T-wave inversions. Repeat EKG at 1719 hours shows sinus rhythm with a rate of 76, normal axis, normal interval; no ST elevation, ST depression, or T-wave inversions. Another 2-hour EKG at 1930 hours shows sinus rhythm with a rate of 65, normal axis, normal interval; no ST elevation, ST depression, or T-wave inversions. H. pylori is negative. CMP is unremarkable except for a potassium of 3.4 and a creatinine of 2.6. LFTs are normal. Amylase and lipase are normal. Coags are normal. HOSPITAL COURSE: When further discussed the patient's symptoms, she does point to her midepigastric region. She reports the pain is completely resolved at this time. I have discussed results with the patient. Her cardiac exam workup is unremarkable. EKGs are normal. She has no pain at this time. I do feel she is safe for outpatient evaluation. I have discussed following up with primary care doctor in 2 days for reevaluation. I have discussed contacting Gastroenterology for possible endoscopy. I have discussed return to care instructions including worsening symptoms or any other concerns return to the emergency department as soon as possible. The patient is agreeable. She is without further questions at this time. DISPOSITION: The patient discharged home in good condition. CRISTINA QUINTANA DO PATIENT'S NAME: REJI GILL [facility] AGE: 71 Y [address] ROOM: [place] [address] LOCATION: [facility] ADMIT DATE: 02/03/2017 ER/Outpatient Report DISCHARGE DATE: 02/03/2017 FAMILY PHYSICIAN: Swetha Parra MD ATTENDING PHYSICIAN: Jimmy Dior/alix /[id number] d: 02/04/17 0103 t: 02/04/17 2306, OUTPATIENT REPORT
--- NOTE | ~2017-02-03 | ER ---
PATIENT'S NAME: REJI GILL [facility] AGE: 71 Y [address] ROOM: [place] [address] LOCATION: ED ADMIT DATE: 02/03/2017 ER/Outpatient Report DISCHARGE DATE: 02/03/2017 FAMILY PHYSICIAN: Swetha Parra MD ATTENDING PHYSICIAN: Jimmy Dior CHIEF COMPLAINT: Chest/epigastric pain. HISTORY OF PRESENT ILLNESS: Ms. Gill was at dialysis today. She had completed dialysis. During the time of completing dialysis, she developed some discomfort in her epigastrium and low chest. It is a clamp-like sensation. She had this for 30 minutes prior to the arrival. She does have a history of heart disease. She is currently dialyzing through a right upper chest catheter. She denies having anything like this before with her prior heart issues. She also has hepatitis and high blood pressure. The patient arrives by EMS, status post aspirin and nitroglycerin with no improvement in her pain. PAST MEDICAL HISTORY: Documented on the record and reviewed by me. SOCIAL HISTORY: Documented on the record and reviewed by me. MEDICATIONS: Documented on the record and reviewed by me. ALLERGIES: DOCUMENTED ON THE RECORD AND REVIEWED BY ME. REVIEW OF SYSTEMS: All systems reviewed and negative except as noted in the HPI. PHYSICAL EXAMINATION: VITAL SIGNS: Blood pressure 191/71, pulse 80, respiratory rate is 20, temperature is not taken, SpO2 is 100% on 2 L nasal cannula. Pain is rated 6/10. NEURO: Awake and alert. GCS 15. No focal deficits. No asymmetry. HEENT: Normocephalic, atraumatic. Eyes are PERRL. Oropharynx is clear. NECK: Supple. Trachea is midline CHEST/HEART: Regular rate and rhythm with no obvious murmurs. LUNGS: Grossly clear to auscultation bilaterally with no rhonchi, wheezes, or rales. ABDOMEN: Soft, nontender, and nondistended. The patient does have some PATIENT'S NAME: REJI GILL [facility] AGE: 71 Y [address] ROOM: [place] [address] LOCATION: ED ADMIT DATE: 02/03/2017 ER/Outpatient Report DISCHARGE DATE: 02/03/2017 FAMILY PHYSICIAN: Swetha Parra MD ATTENDING PHYSICIAN: Jimmy Dior discomfort right at this distal sternum. BACK: Normal to inspection. EXTREMITIES: Slightly cool, but well formed, well perfused with no obvious abnormalities. SKIN: Appears to be grossly intact. LABORATORY DATA AND X-RAYS: 1. Chest x-ray was obtained, notable for dialysis port in the right upper chest, but no other obvious abnormalities per my review. 2. EKG is notable for no apparent ischemia at this time. Rate is 65 with normal intervals and axis. Labs are pending currently. IMPRESSION: Chest pain/epigastric pain. EMERGENCY DEPARTMENT COURSE: The patient was seen and evaluated as above. Cardiac evaluation was initiated. Based on her lack of response to nitroglycerin, we gave her a GI cocktail which did help her feel better. She has had a full dose of aspirin today in total. Care was transitioned to Dr. Piyush Torres at 1800 hours with the plan to follow up her labs, re-evaluate the patient, and disposition accordingly. All questions were answered and the patient was transitioned care to Dr. Torres. MD MART MORILLO/modl /[id number] d: t: 02/04/17 0635, OUTPATIENT REPORT
[2017-02-03 17:05] LABS: BASOPHIL % 0.6 %; EOSINOPHIL # 0.1 K/uL (0.0-0.5); EOSINOPHIL % 1.6 %; HEMATOCRIT 34.4 % (33.0-46.0); HEMOGLOBIN 11.9 g/dL (10.0-15.0); IMMATURE GRANULOCYTE % 0.1 %; LYMPHOCYTE # 1.5 K/uL (0.8-4.0); LYMPHOCYTE % 21.2 %; MCH 33.1 pg (27.0-34.0); MCHC 34.6 gm/dL (32.0-36.5); MCV 95.8 fl (83.0-98.0); MONOCYTE # 0.5 K/uL (0.0-1.0); MONOCYTE % 7.5 %; MPV 9.1 fl (9.4-12.4); NEUTROPHIL # (ANC) 4.9 K/uL (1.8-7.8); NRBC % 0 /100WBC (0-0.00); PLATELET COUNT 99 K/uL (150-450); RBC 3.59 M/uL (3.50-5.50)
[2017-02-03 17:15] LABS: INR - (THERAPEUTIC) 0.95 (0.92-1.07); PTT 30 SECONDS (25-32)
[2017-02-03 17:24] LABS: ALBUMIN 3.4 gm/dL (3.5-5.0); ALK PHOS 113 IU/L (33-138); ALT 19 IU/L (12-78); ANION GAP 11.4 (10.0-19.0); AST 14 IU/L (10-40); BLOOD UREA NITROGEN 18 mg/dL (6-24); CHLORIDE 100 mMol/L (96-110); CO2 28 mMol/L (22-32); CPK 42 IU/L (21-215); CREATININE 2.6 mg/dL (0.5-1.1); POTASSIUM 3.4 mMol/L (3.7-5.1); SODIUM 136 mMol/L (135-145); TOTAL PROTEIN 6.6 g/dL (6.0-8.4)
[2017-02-03 17:29] LABS: TOTAL BILIRUBIN 0.7 mg/dL (0.0-1.5)
[2017-02-03 19:49] LABS: CPK 38 IU/L (21-215)
== END 2017-02-03 20:38 | disposition disaster alternative care site (69) ==
LOC: GMED 16:27
PROVIDERS: Emergency Medicine
DX: R07.9 Chest pain, unspecified (principal); R10.13 Epigastric pain; I12.9 Hypertensive chronic kidney disease with stage 1 through stage 4 chronic kidney disease, or unspecified chronic kidney disease; N18.9 Chronic kidney disease, unspecified; I25.10 Atherosclerotic heart disease of native coronary artery without angina pectoris; Z88.8 Allergy status to other drugs, medicaments and biological substances

== ENCOUNTER → 2017-02-03 | Outpatient (CLI) | payer MEDICARE, MEDICAID | END | disposition disaster alternative care site (69) | LOC: GAMB 15:57 | DX: R07.89 Other chest pain (principal); N18.3 Chronic kidney disease, stage 3 (moderate); I50.9 Heart failure, unspecified; K21.9 Gastro-esophageal reflux disease without esophagitis; Z87.39 Personal history of other diseases of the musculoskeletal system and connective tissue; Z99.2 Dependence on renal dialysis; Z79.899 Other long term (current) drug therapy; Z88.8 Allergy status to other drugs, medicaments and biological substances ==